=== PATIENT | female | born 1955 | race Caucasian/White ===

== ENCOUNTER 2018-07-10 18:39 | Emergency (ER) | payer MEDICARE, OTHER ==
[~2018-07-10] VITALS: Ht 167.6 cm; Wt 64.4 kg
[~2018-07-10 18:39] MED LIST: ACET500; ALBIPROI INH; ALBU.083IS IH; ALBU3IS INH; ALBU90I INH; ALBU90OI INH; ALBU90OI6 INH; ALEN70 PO; ALINIA; AMIT10 PO; ASPI325 PO; ASPI325EC PO; AZIT250 PO; BENZ100A PO; CALCA500CH PO; CALCIUM PO; CELE200; CELE200 PO; CEPH500 PO; CHLCLI; CHLCLI PO; CHOL10002 PO; CIPR500 PO; CODGUAEL PO; CONEST1.25; CONEST1.25 PO; CYCL10 PO; Cleocin HCl150 MG PO; DICY20 PO; DIPATR; DIPATR PO; DOC250 PO; DOCU100 PO; Duoneb 2.5-0.5 M3 ML INH; ESTR2; FLUC150A PO; FLUSAL2505; FLUSAL2505 IH; FLUSAL2505 INH; FLUT.05NI; FLUT44OIA IH; GABA100 PO; GABA300 PO; HORMONE; HYCOSAMINE; HYDACE5; HYDACE5 PO; HYDACE5325; HYDACE7.5; HYDHOMSY PO; HYOMAX-SL SL; HYOS.125; HYOS.125 PO; HYOS.125 SL; HYOS.375ER; HYOS0.375T; HYOS0.375T PO; IBUP800 PO; LEVFLO500 PO; LEVO750 PO; LOPE2C PO; LORA.5 PO; LORA1 PO; MECL12.5 PO; MECL25 PO; MELO7.5 PO; MESA250ER; METPRE4DP PO; METR250; METR500 PO; MONT10T; MONT10T PO; MULVITMINE PO; Mucinex600 MG PO; NAPR375 PO; NYST100SU MT; OMEP20ER PO; ONDA4 PO; ONDA4ODT MM; OXYACE5T PO; OXYC5 PO; PHENA100 PO; PHENA200 PO; PRAM.5 PO; PRED10 PO; PRED20 PO; PRED5; PROACE100 PO; PROC10; PROC10 PO; PROCODE120 PO; PROM25; PROM25 PO; PROM25S PR; Percocet 5-3251 EACH PO; Prednisone20 MG PO; Prednisone50 MG PO; QVAR7.3 G1 IH; RANI150 PO; RXCODGUASY PO; RXHYDACE PO; RXLORA1 PO; RXPHEN200 PO; SIME80CH PO; SINGULAIR; SOLI5; SOLI5 PO; TIOT18 INH; TRAM50; TRAM50 PO; VICODIN; Ventolin Soln3 ML INH; Ventolin5 MG/1 ML IH; Zithromax250 MG PO; Zofran Odt4 MG PO; Zofran Odt4 MG SL
[2018-07-10 19:16] LABS: BASOPHILS ABSOLUTE AUTO 0.08 K/mm3 (0.00-0.23); BASOPHILS PERCENT AUTO 1 % (0-2); EOSINOPHILS ABSOLUTE AUTO 0.61 K/mm3 (0.00-0.68); EOSINOPHILS PERCENT AUTO 6 % (0-6); Hematocrit 44.7 % (33.0-51.0); Hemoglobin 14.6 g/dL (11.5-16.0); IMMATURE GRAN ABSOLUTE AUTO 0.02 K/mm3 (0.00-0.10); IMMATURE GRAN PERCENT AUTO 0 % (0-1); LYMPHOCYTES ABSOLUTE AUTO 3.66 K/mm3 (0.84-5.20); LYMPHOCYTES PERCENT AUTO 34 % (21-46); MONOCYTES ABSOLUTE AUTO 0.97 K/mm3 (0.16-1.47); MONOCYTES PERCENT AUTO 9 % (4-13); Mean Corpuscular HGB 29.1 pg (26.0-34.0); Mean Corpuscular HGB Conc 32.7 g/dL (31.5-36.5); Mean Corpuscular Volume 89 fL (80-100); Mean Platelet Volume 10.7 fL (9.1-12.4); NEUTROPHILS ABSOLUTE AUTO 5.42 K/mm3 (1.96-9.15); NEUTROPHILS PERCENT AUTO 50 % (41-73); Platelet Count 369 K/mm3 (150-400); RDW Coefficient Variation 13.7 % (11.7-14.2); RDW Standard Deviation 44.8 fL (35.1-46.3); Red Blood Cell Count 5.01 M/mm3 (3.80-5.20); White Blood Cell Count 10.76 K/mm3 (4.00-11.30)
[2018-07-10 19:39] LABS: Troponin I <0.015 ng/mL (0.000-0.040)
[2018-07-10 19:41] LABS: Alanine Aminotransfer (ALT/SGP 18 U/L (12-78); Albumin, Blood 3.9 g/dL (3.4-5.0); Albumin/Globulin Ratio 1.1 (0.8-1.8); Alk Phos 99 U/L (50-136); Anion Gap 6 mmol/L (6-16); Aspartate Aminotrans (AST/SGOT 7 U/L (12-37); Bilirubin, Total 0.5 mg/dL (0.1-1.0); Blood Urea Nitrogen 12 mg/dL (8-24); Bun/Creatinine Ratio 12.6 (12.0-20.0); CO2, Blood 28 mmol/L (21-32); Calcium, Blood 9.3 mg/dL (8.5-10.1); Chloride, Blood 101 mmol/L (98-108); Creatinine, Blood 0.95 mg/dL (0.40-1.00); Globulin, Blood 3.5 g/dL (2.2-4.0); Glomerular Filtration Rate >60 (60-); Glucose, Blood 93 mg/dL (70-99); Potassium, Blood 3.8 mmol/L (3.5-5.5); Sodium, Blood 135 mmol/L (136-145); Total Protein, Blood 7.4 g/dL (6.4-8.2)
[2018-07-10] MEDS ORDERED: Zithromax250 MG PO (23:45)
[2018-07-10] MEDS ORDERED: Prednisone20 MG PO (23:45)
[2018-07-11] MEDS ORDERED: BENZ100A PO (00:06)
== END 2018-07-11 00:09 | disposition home or self-care (01) ==
LOC: ER 18:39
PROVIDERS: Emergency Medicine
DX: J44.1 Chronic obstructive pulmonary disease with (acute) exacerbation (principal); F31.9 Bipolar disorder, unspecified; Z88.8 Allergy status to other drugs, medicaments and biological substances; Z88.5 Allergy status to narcotic agent; Z88.0 Allergy status to penicillin; Z79.899 Other long term (current) drug therapy; Z79.82 Long term (current) use of aspirin; Z79.51 Long term (current) use of inhaled steroids; Z87.891 Personal history of nicotine dependence
CPT/HCPCS: 36415; 71046; 80053; 84484; 85025; 94640; 96374; 99284-25; J2930

== ENCOUNTER 2018-07-12 14:02 | Emergency (ER) | payer MEDICARE, OTHER ==
[~2018-07-12] VITALS: Ht 167.6 cm; Wt 66.0 kg
[2018-07-12 16:10] LABS: BASOPHILS ABSOLUTE AUTO 0.02 K/mm3 (0.00-0.23); BASOPHILS PERCENT AUTO 0 % (0-2); EOSINOPHILS PERCENT AUTO 0 % (0-6); Hematocrit 43.9 % (33.0-51.0); Hemoglobin 14.1 g/dL (11.5-16.0); IMMATURE GRAN ABSOLUTE AUTO 0.07 K/mm3 (0.00-0.10); IMMATURE GRAN PERCENT AUTO 1 % (0-1); LYMPHOCYTES ABSOLUTE AUTO 1.13 K/mm3 (0.84-5.20); LYMPHOCYTES PERCENT AUTO 8 % (21-46); MONOCYTES ABSOLUTE AUTO 0.53 K/mm3 (0.16-1.47); MONOCYTES PERCENT AUTO 4 % (4-13); Mean Corpuscular HGB 29.4 pg (26.0-34.0); Mean Corpuscular HGB Conc 32.1 g/dL (31.5-36.5); Mean Platelet Volume 11.3 fL (9.1-12.4); NEUTROPHILS ABSOLUTE AUTO 12.69 K/mm3 (1.96-9.15); NEUTROPHILS PERCENT AUTO 88 % (41-73); Platelet Count 370 K/mm3 (150-400); RDW Coefficient Variation 13.9 % (11.7-14.2); White Blood Cell Count 14.44 K/mm3 (4.00-11.30)
[2018-07-12 16:11] LABS: Mean Corpuscular Volume 92 fL (80-100)
[2018-07-12 16:23] LABS: Alanine Aminotransfer (ALT/SGP 15 U/L (12-78); Albumin, Blood 3.9 g/dL (3.4-5.0); Albumin/Globulin Ratio 1.2 (0.8-1.8); Alk Phos 93 U/L (50-136); Anion Gap 6 mmol/L (6-16); Aspartate Aminotrans (AST/SGOT 10 U/L (12-37); Bilirubin, Total 0.2 mg/dL (0.1-1.0); Blood Urea Nitrogen 20 mg/dL (8-24); Bun/Creatinine Ratio 23.4 (12.0-20.0); CO2, Blood 28 mmol/L (21-32); Calcium, Blood 9.1 mg/dL (8.5-10.1); Chloride, Blood 107 mmol/L (98-108); Creatinine, Blood 0.85 mg/dL (0.40-1.00); Globulin, Blood 3.3 g/dL (2.2-4.0); Glomerular Filtration Rate >60 (60-); Glucose, Blood 120 mg/dL (70-99); Potassium, Blood 4.3 mmol/L (3.5-5.5); Sodium, Blood 141 mmol/L (136-145); Total Protein, Blood 7.2 g/dL (6.4-8.2)
[2018-07-12 16:25] LABS: Troponin I <0.015 ng/mL (0.000-0.040)
== END 2018-07-12 20:05 | disposition home or self-care (01) ==
LOC: ER 14:02
PROVIDERS: Physician Assistant
DX: J44.1 Chronic obstructive pulmonary disease with (acute) exacerbation (principal); J45.909 Unspecified asthma, uncomplicated; F32.9 Major depressive disorder, single episode, unspecified; Z87.891 Personal history of nicotine dependence
CPT/HCPCS: 36415; 71046; 80053; 84484; 85025; 93005; 93010; 94640; 94644; 96361; 96374; 96375; 99284-25; J2930; J7030

== ENCOUNTER 2019-12-05 10:40 | Inpatient (IN) | payer MEDICARE, OTHER ==
[~2019-12-05] VITALS: Ht 167.6 cm; Wt 65.6 kg
[~2019-12-05 10:40] MED LIST changes: +ACET325 PO; +AZIT500 PO; +Acidophilus La100 GM PO; +CODEINE PO; +COMBIVENT RESPIM4 GM INH; +LIDO700A20 TOP; +METOPROLOL; +PRAM.125 PO; +PRED10; +Prednisone10 MG PO; +TROSPIUM CHLORI20 MG PO
[2019-12-05 13:39] LABS: BASOPHILS ABSOLUTE AUTO 0.03 K/mm3 (0.00-0.23); BASOPHILS PERCENT AUTO 0 % (0-2); EOSINOPHILS ABSOLUTE AUTO 0.27 K/mm3 (0.00-0.68); EOSINOPHILS PERCENT AUTO 3 % (0-6); Hematocrit 42.9 % (33.0-51.0); Hemoglobin 13.9 g/dL (11.5-16.0); IMMATURE GRAN ABSOLUTE AUTO 0.02 K/mm3 (0.00-0.10); IMMATURE GRAN PERCENT AUTO 0 % (0-1); LYMPHOCYTES ABSOLUTE AUTO 2.53 K/mm3 (0.84-5.20); LYMPHOCYTES PERCENT AUTO 31 % (21-46); MONOCYTES ABSOLUTE AUTO 0.71 K/mm3 (0.16-1.47); MONOCYTES PERCENT AUTO 9 % (4-13); Mean Corpuscular HGB Conc 32.4 g/dL (31.5-36.5); Mean Corpuscular Volume 89 fL (80-100); Mean Platelet Volume 10.2 fL (9.1-12.4); NEUTROPHILS ABSOLUTE AUTO 4.52 K/mm3 (1.96-9.15); NEUTROPHILS PERCENT AUTO 56 % (41-73); Platelet Count 306 K/mm3 (150-400); RDW Coefficient Variation 14.6 % (11.7-14.2); RDW Standard Deviation 48.4 fL (35.1-46.3); White Blood Cell Count 8.08 K/mm3 (4.00-11.30)
[2019-12-05 14:00] LABS: Alanine Aminotransfer (ALT/SGP 17 U/L (12-78); Albumin, Blood 3.6 g/dL (3.4-5.0); Alk Phos 105 U/L (50-136); Anion Gap 6 mmol/L (6-16); Aspartate Aminotrans (AST/SGOT 15 U/L (12-37); Bilirubin, Total 0.3 mg/dL (0.1-1.0); Blood Urea Nitrogen 12 mg/dL (8-24); Bun/Creatinine Ratio 13.8 (12.0-20.0); CO2, Blood 29 mmol/L (21-32); Chloride, Blood 104 mmol/L (98-108); Creatinine, Blood 0.87 mg/dL (0.40-1.00); Globulin, Blood 3.5 g/dL (2.2-4.0); Glomerular Filtration Rate >60 (60-); Glucose, Blood 81 mg/dL (70-99); Potassium, Blood 4.1 mmol/L (3.5-5.5); Sodium, Blood 139 mmol/L (136-145); Total Protein, Blood 7.1 g/dL (6.4-8.2); Troponin I <0.015 ng/mL (0.000-0.040)
[2019-12-05 14:09] LABS: Influenza A Negative (NEGATIVE); Influenza B Negative (NEGATIVE)
[2019-12-05] MEDS ORDERED: METO25ER PO (15:28)
[2019-12-05] MEDS ORDERED: PRED5 PO (15:29)
[2019-12-05] MEDS ORDERED: GABA300 PO (15:30)
[2019-12-05] MEDS ORDERED: PRAM.5 PO (15:31)
[2019-12-05] MEDS ORDERED: TROSPIUM CHLORI20 MG PO (15:31)
[2019-12-05] MEDS ORDERED: ALBU90OI INH (15:32)
[2019-12-05] MEDS ORDERED: AMIT50 PO (15:32)
[2019-12-05] MEDS ORDERED: TIOT18 INH (15:34)
[2019-12-05] MEDS ORDERED: FLUT1DIS5 INH (15:34)
[2019-12-05] MEDS ORDERED: Flonase 0.05% N16 GM (15:35)
[2019-12-06 05:40] LABS: Base Excess Venous 0.9 mmol/L; Bicarbonate Venous 25.5 mmol/L (24.0-30.0); PCO2 Venous 35.5 mmHg (38-42); PO2 Venous 151 mmHg (38-42); pH Blood Venous 7.45 (7.34-7.37)
[2019-12-06 05:48] LABS: Hematocrit 38.3 % (33.0-51.0); Hemoglobin 12.3 g/dL (11.5-16.0); Mean Corpuscular HGB 28.5 pg (26.0-34.0); Mean Corpuscular HGB Conc 32.1 g/dL (31.5-36.5); Mean Corpuscular Volume 89 fL (80-100); Mean Platelet Volume 10.6 fL (9.1-12.4); Platelet Count 283 K/mm3 (150-400); RDW Coefficient Variation 14.4 % (11.7-14.2); RDW Standard Deviation 46.9 fL (35.1-46.3); Red Blood Cell Count 4.31 M/mm3 (3.80-5.20); White Blood Cell Count 5.97 K/mm3 (4.00-11.30)
[2019-12-06 06:08] LABS: Alanine Aminotransfer (ALT/SGP 16 U/L (12-78); Albumin, Blood 3.1 g/dL (3.4-5.0); Alk Phos 100 U/L (50-136); Anion Gap 7 mmol/L (6-16); Aspartate Aminotrans (AST/SGOT 11 U/L (12-37); Bilirubin, Total 0.3 mg/dL (0.1-1.0); Blood Urea Nitrogen 19 mg/dL (8-24); Bun/Creatinine Ratio 26.3 (12.0-20.0); CO2, Blood 25 mmol/L (21-32); Calcium, Blood 8.6 mg/dL (8.5-10.1); Chloride, Blood 108 mmol/L (98-108); Creatinine, Blood 0.72 mg/dL (0.40-1.00); Globulin, Blood 3.2 g/dL (2.2-4.0); Glomerular Filtration Rate >60 (60-); Glucose, Blood 192 mg/dL (70-99); Sodium, Blood 140 mmol/L (136-145); Total Protein, Blood 6.3 g/dL (6.4-8.2)
[2019-12-06 06:20] LABS: BAND PERCENT MAN 9 % (0-8); BASOPHILS PERCENT MAN 0 % (0-2); EOSINOPHILS PERCENT MAN 0 % (0-6); LYMPHOCYTES ABSOLUTE MAN 1.07 K/mm3 (0.84-5.20); LYMPHOCYTES PERCENT MAN 18 % (21-46); MONOCYTES ABSOLUTE MAN 0.05 K/mm3 (0.16-1.47); MONOCYTES PERCENT MAN 1 % (4-13); NEUTROPHILS ABSOLUTE MAN 4.83 K/mm3 (1.96-9.15); SEG NEUTROPHILS PERCENT MAN 72 % (41-73); TOTAL CELLS COUNTED 100
--- NOTE | 2019-12-06 06:33 | NUR ---
SHIFT SUMMARY PATIENT ALERT AND ORIENTED X 4. ABLE TO AMBULATE TO THE BATHROOM INDEPENDENTLY. PATIENT HAS BEEN HAVING SHORTNESS OF BREATH AND COUGHING SPELLS. BREATHING TREATMENTS PROVIDED BY RT AND PATIENT MEDICATED PER EMAR FOR COUGH. PATIENT CURRENTLY ON 2 LITERS O2 VIA NASAL CANULA. IV PATENT AND CURRENTLY INFUSING WITH LACTATED RINGERS AT 50 ML/HR. BED IN LOWEST POSITION WITH WHEELS LOCKED. CALL LIGHT AND BELONGINGS WITHIN REACH. REPORT GIVEN TO ONCOMING RN.
--- NOTE | 2019-12-06 15:30 | NUR ---
Upon receiving an admit referral for spiritual care, I visit patient. Patient's fiance, Luis Manuel, is bedside. They tell me about patient's medical issues, their family history and their mormonism beliefs. I listen empathically and provide prayer. Patient responds well and shows signs of an elevated mood. I will continue to remain available to patient and family.
--- NOTE | 2019-12-06 18:14 | NUR ---
SHIFT SUMMARY PT SATING WELL ON 2L O2 WHICH IS BASELINE. OCCATIONAL COUGHING SPELLS, TREATED PER EMAR. CLEAR YELLOW SPUTUM PRODUCED. NO OTHER CHANGES IN ASSESSMENT THIS TIME. VSS. PT IND IN ROOM. PLEASANT T/O SHIFT. WILL CONTINUE TO MONITOR UNTIL TURNOVER IS COMPLETE.
[2019-12-07] MEDS ORDERED: PRED20 PO (11:39)
--- NOTE | 2019-12-07 12:51 | NUR ---
pATIENT DISCHARGED HOME. ALL IV LINES DISCONTINUED. MEDICATIONS FAXED TO [facility].
== END 2019-12-07 11:52 | disposition home or self-care (01) | DRG 189 ==
LOC: ER 10:40 → ERHOLD 15:02 → MEDS 19:50
PROVIDERS: Physician Assistant; ADMIT Internal Medicine
DX: J96.01 Acute respiratory failure with hypoxia (principal); K50.90 Crohn's disease, unspecified, without complications; E44.0 Moderate protein-calorie malnutrition; J44.1 Chronic obstructive pulmonary disease with (acute) exacerbation; F41.9 Anxiety disorder, unspecified; R00.0 Tachycardia, unspecified; F31.9 Bipolar disorder, unspecified; K58.9 Irritable bowel syndrome, unspecified; M19.90 Unspecified osteoarthritis, unspecified site; I10 Essential (primary) hypertension; M81.0 Age-related osteoporosis without current pathological fracture; G62.9 Polyneuropathy, unspecified; G47.30 Sleep apnea, unspecified; Z68.24 Body mass index [BMI] 24.0-24.9, adult; Z99.81 Dependence on supplemental oxygen; Z87.891 Personal history of nicotine dependence; Z88.1 Allergy status to other antibiotic agents; Z88.5 Allergy status to narcotic agent; Z88.0 Allergy status to penicillin
CPT/HCPCS: 36415; 71046; 80053; 82803; 83880; 84145; 84484; 85025; 87804; 93005; 93010; 94640; 94644; 94645; 94660; 94760; 96361; 96374; 96375; 97116; 97161; 97530; 99285-25; A9270; C9113; J1650; J2060; J2930; J7030; J7120; J7512

== ENCOUNTER 2020-07-27 15:59 | Emergency (ER) | payer MEDICARE, OTHER ==
[~2020-07-27] VITALS: Ht 167.6 cm; Wt 64.4 kg
[~2020-07-27 15:59] MED LIST changes: +AMIT50 PO; +FLUT1DIS5 INH; +Flonase 0.05% N16 GM; +METO25ER PO; +PRED5 PO
[2020-07-27 17:01] LABS: BASOPHILS ABSOLUTE AUTO 0.05 K/mm3 (0.00-0.23); BASOPHILS PERCENT AUTO 1 % (0-2); EOSINOPHILS ABSOLUTE AUTO 0.34 K/mm3 (0.00-0.68); EOSINOPHILS PERCENT AUTO 4 % (0-6); Hematocrit 44.4 % (33.0-51.0); Hemoglobin 13.9 g/dL (11.5-16.0); IMMATURE GRAN ABSOLUTE AUTO 0.01 K/mm3 (0.00-0.10); IMMATURE GRAN PERCENT AUTO 0 % (0-1); LYMPHOCYTES ABSOLUTE AUTO 2.34 K/mm3 (0.84-5.20); LYMPHOCYTES PERCENT AUTO 29 % (21-46); MONOCYTES ABSOLUTE AUTO 0.71 K/mm3 (0.16-1.47); MONOCYTES PERCENT AUTO 9 % (4-13); Mean Corpuscular HGB 28.3 pg (26.0-34.0); Mean Corpuscular HGB Conc 31.3 g/dL (31.5-36.5); Mean Corpuscular Volume 90 fL (80-100); Mean Platelet Volume 10.2 fL (9.1-12.4); NEUTROPHILS ABSOLUTE AUTO 4.76 K/mm3 (1.96-9.15); NEUTROPHILS PERCENT AUTO 58 % (41-73); Platelet Count 337 K/mm3 (150-400); RDW Coefficient Variation 14.1 % (11.7-14.2); RDW Standard Deviation 47.4 fL (35.1-46.3); Red Blood Cell Count 4.91 M/mm3 (3.80-5.20); White Blood Cell Count 8.21 K/mm3 (4.00-11.30)
[2020-07-27 17:23] LABS: Alanine Aminotransfer (ALT/SGP 19 U/L (12-78); Albumin, Blood 3.4 g/dL (3.4-5.0); Alk Phos 99 U/L (50-136); Anion Gap 4 mmol/L (6-16); Aspartate Aminotrans (AST/SGOT 12 U/L (12-37); Bilirubin, Total 0.4 mg/dL (0.1-1.0); Blood Urea Nitrogen 11 mg/dL (8-24); CO2, Blood 31 mmol/L (21-32); Calcium, Blood 9.2 mg/dL (8.5-10.1); Chloride, Blood 105 mmol/L (98-108); Creatinine, Blood 0.92 mg/dL (0.40-1.00); Globulin, Blood 3.3 g/dL (2.2-4.0); Glomerular Filtration Rate >60 (60-); Glucose, Blood 99 mg/dL (70-99); Potassium, Blood 4.2 mmol/L (3.5-5.5); Sodium, Blood 140 mmol/L (136-145); Total Protein, Blood 6.7 g/dL (6.4-8.2)
[2020-07-28] MEDS ORDERED: COMPAZINE10 MG PO (11:03)
== END 2020-07-27 20:21 | disposition left against medical advice (07) ==
LOC: ER 15:59
PROVIDERS: Physician Assistant
DX: R10.30 Lower abdominal pain, unspecified (principal); R19.7 Diarrhea, unspecified; Z53.21 Procedure and treatment not carried out due to patient leaving prior to being seen by health care provider; Z79.52 Long term (current) use of systemic steroids; Z79.899 Other long term (current) drug therapy
CPT/HCPCS: 36415; 74177; 80053; 85025; 99284-25; Q9967

== ENCOUNTER 2020-07-28 09:13 | Emergency (ER) | payer MEDICARE, OTHER ==
[~2020-07-28] VITALS: Ht 167.6 cm; Wt 64.4 kg
[2020-07-28 10:03] LABS: BASOPHILS ABSOLUTE AUTO 0.04 K/mm3 (0.00-0.23); BASOPHILS PERCENT AUTO 1 % (0-2); EOSINOPHILS ABSOLUTE AUTO 0.35 K/mm3 (0.00-0.68); EOSINOPHILS PERCENT AUTO 5 % (0-6); Hemoglobin 14.1 g/dL (11.5-16.0); IMMATURE GRAN ABSOLUTE AUTO 0.01 K/mm3 (0.00-0.10); IMMATURE GRAN PERCENT AUTO 0 % (0-1); LYMPHOCYTES ABSOLUTE AUTO 2.17 K/mm3 (0.84-5.20); LYMPHOCYTES PERCENT AUTO 29 % (21-46); MONOCYTES ABSOLUTE AUTO 0.64 K/mm3 (0.16-1.47); MONOCYTES PERCENT AUTO 8 % (4-13); Mean Corpuscular HGB 28.5 pg (26.0-34.0); Mean Corpuscular Volume 89 fL (80-100); Mean Platelet Volume 10.7 fL (9.1-12.4); NEUTROPHILS ABSOLUTE AUTO 4.39 K/mm3 (1.96-9.15); NEUTROPHILS PERCENT AUTO 58 % (41-73); Platelet Count 331 K/mm3 (150-400); RDW Coefficient Variation 13.9 % (11.7-14.2); RDW Standard Deviation 45.2 fL (35.1-46.3); Red Blood Cell Count 4.94 M/mm3 (3.80-5.20)
[2020-07-28 10:24] LABS: Alanine Aminotransfer (ALT/SGP 18 U/L (12-78); Albumin, Blood 3.5 g/dL (3.4-5.0); Albumin/Globulin Ratio 1.1 (0.8-1.8); Alk Phos 101 U/L (50-136); Anion Gap 4 mmol/L (6-16); Aspartate Aminotrans (AST/SGOT 12 U/L (12-37); Bilirubin, Total 0.5 mg/dL (0.1-1.0); Blood Urea Nitrogen 10 mg/dL (8-24); Bun/Creatinine Ratio 11.2 (12.0-20.0); CO2, Blood 32 mmol/L (21-32); Chloride, Blood 101 mmol/L (98-108); Globulin, Blood 3.3 g/dL (2.2-4.0); Glomerular Filtration Rate >60 (60-); Glucose, Blood 98 mg/dL (70-99); Potassium, Blood 4.4 mmol/L (3.5-5.5); Sodium, Blood 137 mmol/L (136-145); Total Protein, Blood 6.8 g/dL (6.4-8.2)
[2020-07-28] MEDS ORDERED: COMPAZINE10 MG PO (11:03)
== END 2020-07-28 11:09 | disposition home or self-care (01) ==
LOC: ER 09:13
PROVIDERS: Physician Assistant
DX: R11.2 Nausea with vomiting, unspecified (principal); R19.7 Diarrhea, unspecified; J44.9 Chronic obstructive pulmonary disease, unspecified; F31.9 Bipolar disorder, unspecified; F17.200 Nicotine dependence, unspecified, uncomplicated; Z79.899 Other long term (current) drug therapy; Z79.52 Long term (current) use of systemic steroids
CPT/HCPCS: 36415; 74176; 80053; 85025; 96374; 99283-25; J2405

== ENCOUNTER 2020-11-22 19:18 | Inpatient (IN) | payer MEDICARE, OTHER ==
[~2020-11-22] VITALS: Ht 162.6 cm; Wt 65.8 kg
[~2020-11-22 19:18] MED LIST changes: +COMPAZINE10 MG PO
[2020-11-22 19:41] LABS: BASOPHILS ABSOLUTE AUTO 0.08 K/mm3 (0.00-0.23); BASOPHILS PERCENT AUTO 1 % (0-2); EOSINOPHILS ABSOLUTE AUTO 0.74 K/mm3 (0.00-0.68); EOSINOPHILS PERCENT AUTO 5 % (0-6); Hematocrit 47.3 % (33.0-51.0); Hemoglobin 14.8 g/dL (11.5-16.0); IMMATURE GRAN ABSOLUTE AUTO 0.09 K/mm3 (0.00-0.10); IMMATURE GRAN PERCENT AUTO 1 % (0-1); LYMPHOCYTES ABSOLUTE AUTO 3.45 K/mm3 (0.84-5.20); LYMPHOCYTES PERCENT AUTO 24 % (21-46); MONOCYTES ABSOLUTE AUTO 0.99 K/mm3 (0.16-1.47); MONOCYTES PERCENT AUTO 7 % (4-13); Mean Corpuscular HGB Conc 31.3 g/dL (31.5-36.5); Mean Corpuscular Volume 93 fL (80-100); Mean Platelet Volume 10.3 fL (9.1-12.4); NEUTROPHILS ABSOLUTE AUTO 9.16 K/mm3 (1.96-9.15); NEUTROPHILS PERCENT AUTO 63 % (41-73); Platelet Count 300 K/mm3 (150-400); RDW Coefficient Variation 14.6 % (11.7-14.2); RDW Standard Deviation 50.2 fL (35.1-46.3); White Blood Cell Count 14.51 K/mm3 (4.00-11.30)
[2020-11-22 19:42] LABS: PCO2 Arterial 59.4 mmHg (35-45); PO2 Arterial 165 mmHg (80-100); pH Blood Arterial 7.32 (7.35-7.45)
[2020-11-22 20:01] LABS: Albumin, Blood 3.9 g/dL (3.4-5.0); Albumin/Globulin Ratio 1.2 (0.8-1.8); Bilirubin, Total 0.5 mg/dL (0.1-1.0); Bun/Creatinine Ratio 10.6 (12.0-20.0); Calcium, Blood 8.5 mg/dL (8.5-10.1); Creatinine, Blood 1.04 mg/dL (0.40-1.00); Globulin, Blood 3.3 g/dL (2.2-4.0); Potassium, Blood 4.5 mmol/L (3.5-5.5); Total Protein, Blood 7.2 g/dL (6.4-8.2); Troponin I 0.084 ng/mL (0.000-0.040)
--- NOTE | 2020-11-22 21:56 | NUR ---
ADMIT NOTE AT APPROX 2130, PCU WAS BROUGHT TO PCU FROM ED VIA ED STRETCHER. PT WAS SLID FROM ED STRETCHER TO PCU BED BY 4 STAFF. PT A&OX4. SP02>90% ON 4L NC. PT IS SOB, SITTING UP IN BED AT 90 DEGREES. LUNGS HAVE EXP WHEEZE T/O. PRODUCTIVE COUGH W/ WHITE THICK SPUTUM. PT C/O OF NAUSEA. PT ALSO STATES 5/10 "SORENESS" IN HER CHEST FROM COUGHING. PT STATES SHE HAS BEEN USING BRIEFS FOR RESTROOM THE PAST WEEK. C/D BRIEFS IN TACT. ORIENTED TO ROOM AND CALL LIGHT. CALL LIGHT IN REACH. PT RESTING IN ROOM WITH TV ON.
--- NOTE | 2020-11-23 00:47 | NUR ---
PT UPDATE PT USED CALL LIGHT TO ASK FOR COOL RAG. UPON ENTERING ROOM, PT HAD GOWN OFF, SPLASHING WATER ON HERSELF, NC ON BED, STATING "COOL ME DOWN! IM HOT! i CANT BREATHE!" SP02 MONITOR SHOWED 85%. NC IMMEDIATELY PLACED IN NOSE. PT GRABBED THIS RN'S ARMS AND STATED "DONT LEAVE ME!". ENCOURAGED PT TO TAKE DEEP BREATHES THROUGH HER NOSE WHILE PLACING COOL RAG ON FORHEAD. FAN PROVIDED WELL. PT STATED "THIS HAPPENS AT HOME TOO WHEN I TAKE STERIODS." PT STAT'S INCREASED TO 94%. PT CALMED DOWN AND IS NOW RESTING IN ROOM W/ TV ON. CALL LIGHT IN REACH.
[2020-11-23 04:15] LABS: BASOPHILS ABSOLUTE AUTO 0.01 K/mm3 (0.00-0.23); BASOPHILS PERCENT AUTO 0 % (0-2); EOSINOPHILS PERCENT AUTO 0 % (0-6); Hematocrit 43.9 % (33.0-51.0); Hemoglobin 13.8 g/dL (11.5-16.0); IMMATURE GRAN ABSOLUTE AUTO 0.04 K/mm3 (0.00-0.10); IMMATURE GRAN PERCENT AUTO 0 % (0-1); LYMPHOCYTES ABSOLUTE AUTO 0.44 K/mm3 (0.84-5.20); LYMPHOCYTES PERCENT AUTO 5 % (21-46); MONOCYTES ABSOLUTE AUTO 0.05 K/mm3 (0.16-1.47); MONOCYTES PERCENT AUTO 1 % (4-13); Mean Corpuscular HGB 28.7 pg (26.0-34.0); Mean Corpuscular HGB Conc 31.4 g/dL (31.5-36.5); Mean Corpuscular Volume 91 fL (80-100); Mean Platelet Volume 10.5 fL (9.1-12.4); NEUTROPHILS PERCENT AUTO 94 % (41-73); Platelet Count 289 K/mm3 (150-400); RDW Coefficient Variation 14.6 % (11.7-14.2); RDW Standard Deviation 48.8 fL (35.1-46.3); Red Blood Cell Count 4.81 M/mm3 (3.80-5.20); White Blood Cell Count 9.14 K/mm3 (4.00-11.30)
[2020-11-23 04:49] LABS: Alanine Aminotransfer (ALT/SGP 60 U/L (12-78); Albumin, Blood 3.4 g/dL (3.4-5.0); Alk Phos 107 U/L (50-136); Anion Gap 3 mmol/L (6-16); Aspartate Aminotrans (AST/SGOT 41 U/L (12-37); Bilirubin, Total 0.6 mg/dL (0.1-1.0); Blood Urea Nitrogen 12 mg/dL (8-24); Bun/Creatinine Ratio 13.9 (12.0-20.0); CO2, Blood 32 mmol/L (21-32); CPK Creatine Kinase 107 U/L (26-193); Calcium, Blood 8.9 mg/dL (8.5-10.1); Chloride, Blood 105 mmol/L (98-108); Creatinine, Blood 0.87 mg/dL (0.40-1.00); Globulin, Blood 3.3 g/dL (2.2-4.0); Glomerular Filtration Rate >60 (60-); Glucose, Blood 148 mg/dL (70-99); Potassium, Blood 4.7 mmol/L (3.5-5.5); Sodium, Blood 140 mmol/L (136-145); Total Protein, Blood 6.7 g/dL (6.4-8.2)
[2020-11-23 05:01] LABS: Troponin I 0.507 ng/mL (0.000-0.040)
--- NOTE | 2020-11-23 05:32 | NUR ---
SHIFT SUMMARY PT A&OX4. PT HAD MULTIPLE EPISODES THAT APPEARED "PANIC ATTACKS". SEE PREVIOUS NOTE. SP02>90% ON 4L NC. PT HAS PRODUCTIVE COUGH W/ WHITE THICK SPUTUM. MEDICATED W/ COUGH SYRUP PER EMAR X1. PT C/O OF NAUSEA. MEDICATED PER EMAR X1 THIS SHIFT. PT ALSO STATES 5/10 "SORENESS" IN HER CHEST FROM COUGHING. PT HAD ONE INCONTINENT VOID THIS SHIFT WELL UP TO [facility] W/ ASSISTANCE X2. C/D ATTENDS IN PLACE. CALL LIGHT IN REACH. WILL GIVE REPORT TO ONCOMING NURSE.
--- NOTE | 2020-11-23 09:37 | NUR ---
Echocardiogram completed.
--- NOTE | 2020-11-23 10:02 | NUR ---
ASSUMED CARE FROM [facility] RN PT WAS ADMITTED DURING [facility] SHIFT FOR COPD EXACERBATION. PT WAS AWAKE AND PARTICIPATED IN MORNING REPORT. PT HAD SOME ANXIETY THROUGHOUT THE NIGHT BUT IT SEEMS TO RESOLVED WITH OPEN COMMUNICATION AND REASSURANCE BY THE RN ACCORDING TO REPORT. PT HAS NOT HAD ANXIETY THIS MORNING, VS STABLE, PT ON 2L O2 VIA NC WHICH IS HER BASELINE. PT HAS RECEIVED SOME MEDICATION ALONG WITH MORNING MEDS TO TREAT HER COUGH WHICH PT REPORTS THE TESSALAN PEARLS BEING HELPFUL. PT HAD AN INCONTINENCE EPISODE THIS MORNING, LINENS WERE CHANGED, PT WAS ABLE TO URINATE IN THE BSC WELL WITH ASSISTANCE FROM THE CONVEYOR LINE BATTERY CHARGER. PT IS IN BED RESTING AT THIS TIME.
--- NOTE | 2020-11-23 11:07 | NUR ---
CARDIOLOGY CONSULT DR. LAO WAS CONSULTED AND SPENT TIME WITH THE PT EXPLAINING HIS RECOMMENDATION OF ANGIO. CHRIS HONG WAS PRESENT WELL DURING THE CONSULT AND ENSURED THE PT'S UNDERSTANDING OF THE PROCEDURE AND THE OUTCOME AND THE REASONING BEHIND THE RECOMMENDATION. PT STATED SHE WANTED TO SPEAK WITH HER FAMILY BEFORE MAKING A DECISION. PT ALSO STATED "MY LUNG DOCTOR HAS MENTIONED THAT I MAY NEED TO DO THIS AT SOME POINT BUT I'D LIKE TO WAIT AND SEE HIM FIRST AND GO THROUGH HIM TO CONNECT WITH CARDIOLOGY." CHRIS HONG EXPLAINED AGAIN THAT THE ANGIO WAS RECOMMENDED; AND EXPLAINED THAT BY DENYING THE ANGIO TODAY IT WOULD TAKE LONGER TO GET TREATMENT OUTPATIENT AND THERE IS A POSSIBILITY THAT SOME CARDIAC EVENT COULD OCCUR DUE TO THE STRESS ON THE HEART FROM POOR RESPIRATORY STATUS OR THE UNKNOWN POSSIBLITY OF BLOCKAGE CAUSING ISCHEMIA. IT WAS EXPLAINED THAT IT MAY NOT HAPPEN BUT IT IS A POSSIBILITY BY NOT GOING FOR ANGIO TODAY, PT GAVE VERBAL UNDERSTANDING MULTIPLE TIMES REGARDING HER DECISION. DR. VARGAS AND DR. LAO WERE NOTIFIED OF THE PT'S DECISION.
[2020-11-23 12:09] LABS: Troponin I 0.36 ng/mL (0.000-0.040)
--- NOTE | 2020-11-23 15:37 | NUR ---
TRANSFER OF CARE PT TRANSFERRED TO MEDICAL FLOOR AT APPROXIMATELY 1405. PT COMPLETED DIALYSIS TODAY AND HAD APPROXIMATELY 3400 ML PULLED OFF. PT LEFT WITH 1L O2 VIA NC IN PLACE, VS STABLE, PT ABLE TO SBA TO THE WHEELCHAIR FOR TRANSFER. REPORT WAS GIVEN TO MEDICAL FLOOR RN VIA PHONE. PT ACCOMPANIED BY , CHRIS OROZCO AND SITE PLANNER. PT WAS SENT WITH ALL PERSONAL BELONGINGS, NEXT DOSE OF VANCO AND BOTH LONG ACTING AND SHORT ACTING INSULIN PENS.
--- NOTE | 2020-11-23 19:14 | NUR ---
SHIFT SUMMARY PT WAS CONSULTED BY CARDIOLOGY TODAY AND AN ANGIO WAS RECOMMENDED BUT THE PT DECLINED AT THIS TIME. PT HAS BEEN COUGHING ON AND OFF THROUGHOUT THE DAY, THE TESSALON PEARLS SEEMED TO GIVE HER RELIEF. PT HAS HAD SEVERAL INCONTINENCE EPISODES THROUGOUT THE DAY DUE TO THE COUGHING. VS STABLE, PT ON 2L O2 VIA NC AND ABLE TO USE THE BSC FOR RELIEF. PT IN HER BED RESTING AT THIS TIME
[2020-11-24 05:29] LABS: Hematocrit 44.1 % (33.0-51.0); Hemoglobin 13.9 g/dL (11.5-16.0); Mean Corpuscular HGB 28.6 pg (26.0-34.0); Mean Corpuscular HGB Conc 31.5 g/dL (31.5-36.5); Mean Corpuscular Volume 91 fL (80-100); Mean Platelet Volume 10.7 fL (9.1-12.4); Platelet Count 317 K/mm3 (150-400); RDW Coefficient Variation 14.6 % (11.7-14.2); RDW Standard Deviation 48.2 fL (35.1-46.3); Red Blood Cell Count 4.86 M/mm3 (3.80-5.20); White Blood Cell Count 14.77 K/mm3 (4.00-11.30)
[2020-11-24 05:55] LABS: Alanine Aminotransfer (ALT/SGP 54 U/L (12-78); Albumin, Blood 3.3 g/dL (3.4-5.0); Alk Phos 94 U/L (50-136); Anion Gap 4 mmol/L (6-16); Aspartate Aminotrans (AST/SGOT 29 U/L (12-37); Bilirubin, Total 0.4 mg/dL (0.1-1.0); Blood Urea Nitrogen 17 mg/dL (8-24); Bun/Creatinine Ratio 22.5 (12.0-20.0); CO2, Blood 34 mmol/L (21-32); Calcium, Blood 9.1 mg/dL (8.5-10.1); Chloride, Blood 103 mmol/L (98-108); Creatinine, Blood 0.76 mg/dL (0.40-1.00); Globulin, Blood 3.2 g/dL (2.2-4.0); Glomerular Filtration Rate >60 (60-); Glucose, Blood 127 mg/dL (70-99); Potassium, Blood 4.2 mmol/L (3.5-5.5); Sodium, Blood 141 mmol/L (136-145); Total Protein, Blood 6.5 g/dL (6.4-8.2)
--- NOTE | 2020-11-24 06:23 | NUR ---
shift summary pt rested through most of night - able to make needs known. very anxious. sats dropped through night - increased o2 to 5lnc. tele nsr. no c/o chest pain. nauseated through night - see emar. cough meds as needed - see emar. attends changed as needed - no bm. no signs of c.diff. no c/o pain. call light within reach, bed in lowest position. will continue to monitor.
[2020-11-24] MEDS ORDERED: BENZ100A PO (12:55)
[2020-11-24] MEDS ORDERED: CEFD300 PO (12:58)
--- NOTE | 2020-11-24 19:44 | NUR ---
DISCHARGE SUMMARY PT A&Ox3; ANXIOUS BUT COOPERATIVE WITH CARE. PT RESTING IN BED DURING SHIFT. UP TO [facility] SBA. PT ON 4L O2 VIA NC THIS AM; TITRATED TO 2L O2 VIA NC WHICH IS PATIENT BASELINE, SPO2 90-91% ON 2L. PT REPORTS NAUSES THIS AM, MEDICATED PER EMAR. PT DENIES PAIN, CHEST PAIN, AND DIZZINESS. VSS. NO OTHER ACUTE CHAGNES NOTED DURING SHIFT. PT EDUCATED ON DISCHARGE INSTRUCTIONS, FOLLOW UP APPOINTMENTS AND MEDICATIONS. PT LEFT ROOM VIA WHEELCHAIR AT 1406.
== END 2020-11-24 14:06 | disposition home or self-care (01) | DRG 189 ==
LOC: ER 19:18 → PCU 19:19
PROVIDERS: Emergency Medicine; Internal Medicine; ADMIT Internal Medicine
DX: J96.01 Acute respiratory failure with hypoxia (principal); J44.1 Chronic obstructive pulmonary disease with (acute) exacerbation; K50.90 Crohn's disease, unspecified, without complications; I50.22 Chronic systolic (congestive) heart failure; Z66 Do not resuscitate; R79.89 Other specified abnormal findings of blood chemistry; N63.0 Unspecified lump in unspecified breast; F31.9 Bipolar disorder, unspecified; K58.9 Irritable bowel syndrome, unspecified; I34.0 Nonrheumatic mitral (valve) insufficiency; F41.9 Anxiety disorder, unspecified; M19.90 Unspecified osteoarthritis, unspecified site; G47.30 Sleep apnea, unspecified; Z99.81 Dependence on supplemental oxygen; Z87.891 Personal history of nicotine dependence; Z79.51 Long term (current) use of inhaled steroids; Z79.52 Long term (current) use of systemic steroids
CPT/HCPCS: 36415; 36600; 71045; 80053; 82550; 82803; 83605; 83880; 84484; 85025; 85027; 87040; 87070; 87205; 93005; 93010; 93306; 94640; 94644; 94760; 94762; 96372; 96374; 96375; 96376; 99285-25; A9270; G0378; J1650; J2405; J2930

== ENCOUNTER 2021-05-04 13:19 | Emergency (ER) | payer MEDICARE, OTHER ==
[~2021-05-04] VITALS: Ht 167.6 cm; Wt 59.0 kg
[~2021-05-04 13:19] MED LIST changes: +CEFD300 PO
[2021-05-04 14:45] LABS: BASOPHILS ABSOLUTE AUTO 0.04 K/mm3 (0.00-0.23); BASOPHILS PERCENT AUTO 1 % (0-2); EOSINOPHILS ABSOLUTE AUTO 0.26 K/mm3 (0.00-0.68); EOSINOPHILS PERCENT AUTO 4 % (0-6); Hematocrit 45.5 % (33.0-51.0); Hemoglobin 14.6 g/dL (11.5-16.0); IMMATURE GRAN ABSOLUTE AUTO 0.01 K/mm3 (0.00-0.10); IMMATURE GRAN PERCENT AUTO 0 % (0-1); LYMPHOCYTES ABSOLUTE AUTO 2.19 K/mm3 (0.84-5.20); LYMPHOCYTES PERCENT AUTO 32 % (21-46); MONOCYTES ABSOLUTE AUTO 0.58 K/mm3 (0.16-1.47); MONOCYTES PERCENT AUTO 8 % (4-13); Mean Corpuscular HGB 28.6 pg (26.0-34.0); Mean Corpuscular HGB Conc 32.1 g/dL (31.5-36.5); Mean Corpuscular Volume 89 fL (80-100); Mean Platelet Volume 11.4 fL (9.1-12.4); NEUTROPHILS ABSOLUTE AUTO 3.81 K/mm3 (1.96-9.15); NEUTROPHILS PERCENT AUTO 55 % (41-73); Platelet Count 270 K/mm3 (150-400); RDW Coefficient Variation 13.4 % (11.7-14.2); RDW Standard Deviation 43.9 fL (35.1-46.3); White Blood Cell Count 6.89 K/mm3 (4.00-11.30)
[2021-05-04 15:06] LABS: Alanine Aminotransfer (ALT/SGP 24 U/L (12-78); Albumin, Blood 3.8 g/dL (3.4-5.0); Albumin/Globulin Ratio 1.1 (0.8-1.8); Alk Phos 88 U/L (50-136); Anion Gap 3 mmol/L (6-16); Aspartate Aminotrans (AST/SGOT 17 U/L (12-37); Bilirubin, Total 0.5 mg/dL (0.1-1.0); Blood Urea Nitrogen 10 mg/dL (8-24); CO2, Blood 28 mmol/L (21-32); Calcium, Blood 9.5 mg/dL (8.5-10.1); Chloride, Blood 106 mmol/L (98-108); Creatinine, Blood 0.83 mg/dL (0.40-1.00); Globulin, Blood 3.5 g/dL (2.2-4.0); Glomerular Filtration Rate >60 (60-); Glucose, Blood 120 mg/dL (70-99); Potassium, Blood 3.9 mmol/L (3.5-5.5); Sodium, Blood 137 mmol/L (136-145); Total Protein, Blood 7.3 g/dL (6.4-8.2)
[2021-05-04 15:24] LABS: Source, Urine Clean Catch
[2021-05-04 15:30] LABS: Appearance, Urine Clear (Clear); Bilirubin, Urine Neg (Neg); Blood, Urine Neg (Neg); Color, Urine Yellow (P-Yellow); Glucose Qualitative, Urine Neg (Neg); Ketones, Urine Neg (Neg); Leukocyte Esterase, Urine Neg (Neg); Nitrite, Urine Neg (Neg); Protein, Urine Neg (Neg); Specific Gravity, Urine 1.025 (1.003-1.022); Urobilinogen, Urine NORM (Normal)
[2021-05-04] MEDS ORDERED: ONDA4ODT MM (16:39)
== END 2021-05-04 17:26 | disposition home or self-care (01) ==
LOC: ER 13:19
PROVIDERS: Student in an Organized Health Care Education/Training Program
DX: R10.31 Right lower quadrant pain (principal); R11.2 Nausea with vomiting, unspecified; J43.9 Emphysema, unspecified; Z88.5 Allergy status to narcotic agent; Z88.0 Allergy status to penicillin; Z88.8 Allergy status to other drugs, medicaments and biological substances; Z87.891 Personal history of nicotine dependence
CPT/HCPCS: 74177; 80053; 81003; 85025; 96361; 96374-59; 99284-25; J2405; J7120; Q9967

== ENCOUNTER 2021-05-06 11:43 | Emergency (ER) | payer MEDICARE, OTHER ==
[~2021-05-06] VITALS: Ht 167.6 cm; Wt 63.5 kg
[2021-05-06 12:30] LABS: BASOPHILS ABSOLUTE AUTO 0.04 K/mm3 (0.00-0.23); BASOPHILS PERCENT AUTO 1 % (0-2); EOSINOPHILS ABSOLUTE AUTO 0.41 K/mm3 (0.00-0.68); EOSINOPHILS PERCENT AUTO 7 % (0-6); Hematocrit 42.5 % (33.0-51.0); Hemoglobin 13.6 g/dL (11.5-16.0); IMMATURE GRAN ABSOLUTE AUTO 0.01 K/mm3 (0.00-0.10); IMMATURE GRAN PERCENT AUTO 0 % (0-1); LYMPHOCYTES ABSOLUTE AUTO 1.98 K/mm3 (0.84-5.20); LYMPHOCYTES PERCENT AUTO 31 % (21-46); MONOCYTES ABSOLUTE AUTO 0.57 K/mm3 (0.16-1.47); MONOCYTES PERCENT AUTO 9 % (4-13); Mean Corpuscular HGB 29.1 pg (26.0-34.0); Mean Corpuscular Volume 91 fL (80-100); Mean Platelet Volume 11.1 fL (9.1-12.4); NEUTROPHILS ABSOLUTE AUTO 3.33 K/mm3 (1.96-9.15); NEUTROPHILS PERCENT AUTO 53 % (41-73); Platelet Count 245 K/mm3 (150-400); RDW Coefficient Variation 14.1 % (11.7-14.2); RDW Standard Deviation 46.9 fL (35.1-46.3); Red Blood Cell Count 4.68 M/mm3 (3.80-5.20); White Blood Cell Count 6.34 K/mm3 (4.00-11.30)
[2021-05-06 12:36] LABS: Alanine Aminotransfer (ALT/SGP 23 U/L (12-78); Albumin, Blood 3.7 g/dL (3.4-5.0); Albumin/Globulin Ratio 1.2 (0.8-1.8); Alk Phos 82 U/L (50-136); Anion Gap 2 mmol/L (6-16); Aspartate Aminotrans (AST/SGOT 17 U/L (12-37); Bilirubin, Total 0.4 mg/dL (0.1-1.0); Blood Urea Nitrogen 10 mg/dL (8-24); Bun/Creatinine Ratio 11.4 (12.0-20.0); CO2, Blood 29 mmol/L (21-32); Chloride, Blood 109 mmol/L (98-108); Creatinine, Blood 0.88 mg/dL (0.40-1.00); Ethanol (Alcohol), Blood, Med <3 mg/dL; Glomerular Filtration Rate >60 (60-); Glucose, Blood 92 mg/dL (70-99); Potassium, Blood 4.1 mmol/L (3.5-5.5); Sodium, Blood 140 mmol/L (136-145); Total Protein, Blood 6.7 g/dL (6.4-8.2)
[2021-05-06] MEDS ORDERED: PROM25 PO (13:32)
[2021-05-06] MEDS ORDERED: DICY20 PO (13:32)
== END 2021-05-06 14:02 | disposition home or self-care (01) ==
LOC: ER 11:43
PROVIDERS: Emergency Medicine
DX: R10.9 Unspecified abdominal pain (principal); R11.2 Nausea with vomiting, unspecified; R53.1 Weakness; J43.9 Emphysema, unspecified; Z88.8 Allergy status to other drugs, medicaments and biological substances; Z88.0 Allergy status to penicillin; Z79.899 Other long term (current) drug therapy
CPT/HCPCS: 36415; 80053; 83690; 85025; 85027; 85651; 96374; 99284-25; G0480; J2405

== ENCOUNTER 2021-05-22 08:12 | Emergency (ER) | payer MEDICARE, OTHER ==
[~2021-05-22] VITALS: Ht 167.6 cm; Wt 63.5 kg
[2021-05-22 08:54] LABS: BASOPHILS ABSOLUTE AUTO 0.01 K/mm3 (0.00-0.23); BASOPHILS PERCENT AUTO 0 % (0-2); EOSINOPHILS PERCENT AUTO 0 % (0-6); Hematocrit 42.4 % (33.0-51.0); Hemoglobin 13.9 g/dL (11.5-16.0); IMMATURE GRAN PERCENT AUTO 0 % (0-1); LYMPHOCYTES ABSOLUTE AUTO 1.18 K/mm3 (0.84-5.20); LYMPHOCYTES PERCENT AUTO 28 % (21-46); MONOCYTES ABSOLUTE AUTO 0.81 K/mm3 (0.16-1.47); MONOCYTES PERCENT AUTO 20 % (4-13); Mean Corpuscular HGB 28.7 pg (26.0-34.0); Mean Corpuscular HGB Conc 32.8 g/dL (31.5-36.5); Mean Corpuscular Volume 88 fL (80-100); Mean Platelet Volume 11.2 fL (9.1-12.4); NEUTROPHILS ABSOLUTE AUTO 2.15 K/mm3 (1.96-9.15); NEUTROPHILS PERCENT AUTO 52 % (41-73); Platelet Count 197 K/mm3 (150-400); RDW Coefficient Variation 14.1 % (11.7-14.2); RDW Standard Deviation 45.1 fL (35.1-46.3); Red Blood Cell Count 4.84 M/mm3 (3.80-5.20); White Blood Cell Count 4.15 K/mm3 (4.00-11.30)
[2021-05-22 09:17] LABS: Alanine Aminotransfer (ALT/SGP 20 U/L (12-78); Albumin, Blood 3.5 g/dL (3.4-5.0); Albumin/Globulin Ratio 1.1 (0.8-1.8); Alk Phos 77 U/L (50-136); Anion Gap 7 mmol/L (6-16); Aspartate Aminotrans (AST/SGOT 19 U/L (12-37); Bilirubin, Total 0.3 mg/dL (0.1-1.0); Blood Urea Nitrogen 13 mg/dL (8-24); Bun/Creatinine Ratio 13.3 (12.0-20.0); CO2, Blood 27 mmol/L (21-32); Calcium, Blood 8.9 mg/dL (8.5-10.1); Chloride, Blood 102 mmol/L (98-108); Creatinine, Blood 0.98 mg/dL (0.40-1.00); Globulin, Blood 3.2 g/dL (2.2-4.0); Glomerular Filtration Rate 57 (60-); Glucose, Blood 86 mg/dL (70-99); Potassium, Blood 3.7 mmol/L (3.5-5.5); Sodium, Blood 136 mmol/L (136-145); Total Protein, Blood 6.7 g/dL (6.4-8.2); Troponin I <0.015 ng/mL (0.000-0.040)
[2021-05-22] MEDS ORDERED: ACETAMINOPHEN500 MG PO (09:51)
[2021-05-22] MEDS ORDERED: Roxicodone5 MG PO (09:51)
== END 2021-05-22 10:42 | disposition home or self-care (01) ==
LOC: ER 08:12
PROVIDERS: Emergency Medicine
DX: S20.211A Contusion of right front wall of thorax, initial encounter (principal); W19.XXXA Unspecified fall, initial encounter; Y92.009 Unspecified place in unspecified non-institutional (private) residence as the place of occurrence of the external cause; J44.9 Chronic obstructive pulmonary disease, unspecified; Z96.651 Presence of right artificial knee joint
CPT/HCPCS: 36415; 71046; 80053; 84484; 85025; 93005; 93010; 99284-25; A9270

== ENCOUNTER 2021-05-25 00:42 | Emergency (ER) | payer MEDICARE, OTHER ==
[~2021-05-25] VITALS: Ht 167.6 cm; Wt 65.8 kg
[~2021-05-25 00:42] MED LIST changes: +ACETAMINOPHEN500 MG PO; +Roxicodone5 MG PO
[2021-05-25 01:20] LABS: EOSINOPHILS ABSOLUTE AUTO 0.01 K/mm3 (0.00-0.68); EOSINOPHILS PERCENT AUTO 0 % (0-6); RDW Coefficient Variation 13.8 % (11.7-14.2)
[2021-05-25 01:27] LABS: BASOPHILS ABSOLUTE AUTO 0.01 K/mm3 (0.00-0.23); BASOPHILS PERCENT AUTO 0 % (0-2); Hematocrit 40.3 % (33.0-51.0); Hemoglobin 13.6 g/dL (11.5-16.0); IMMATURE GRAN ABSOLUTE AUTO 0.02 K/mm3 (0.00-0.10); IMMATURE GRAN PERCENT AUTO 1 % (0-1); LYMPHOCYTES ABSOLUTE AUTO 0.94 K/mm3 (0.84-5.20); LYMPHOCYTES PERCENT AUTO 25 % (21-46); MONOCYTES ABSOLUTE AUTO 0.37 K/mm3 (0.16-1.47); MONOCYTES PERCENT AUTO 10 % (4-13); Mean Corpuscular HGB 28.6 pg (26.0-34.0); Mean Corpuscular HGB Conc 33.7 g/dL (31.5-36.5); Mean Corpuscular Volume 85 fL (80-100); NEUTROPHILS ABSOLUTE AUTO 2.42 K/mm3 (1.96-9.15); NEUTROPHILS PERCENT AUTO 64 % (41-73); RDW Standard Deviation 43.1 fL (35.1-46.3); Red Blood Cell Count 4.75 M/mm3 (3.80-5.20); White Blood Cell Count 3.77 K/mm3 (4.00-11.30)
[2021-05-25 01:28] LABS: Mean Platelet Volume 11.3 fL (9.1-12.4); Platelet Count 153 K/mm3 (150-400)
[2021-05-25 01:39] LABS: Alanine Aminotransfer (ALT/SGP 24 U/L (12-78); Albumin, Blood 3.2 g/dL (3.4-5.0); Albumin/Globulin Ratio 0.9 (0.8-1.8); Alk Phos 58 U/L (50-136); Anion Gap 6 mmol/L (6-16); Aspartate Aminotrans (AST/SGOT 32 U/L (12-37); Bilirubin, Total 0.4 mg/dL (0.1-1.0); Blood Urea Nitrogen 16 mg/dL (8-24); Bun/Creatinine Ratio 19.8 (12.0-20.0); CO2, Blood 27 mmol/L (21-32); Calcium, Blood 7.9 mg/dL (8.5-10.1); Chloride, Blood 99 mmol/L (98-108); Creatinine, Blood 0.81 mg/dL (0.40-1.00); Globulin, Blood 3.4 g/dL (2.2-4.0); Glomerular Filtration Rate >60 (60-); Glucose, Blood 79 mg/dL (70-99); Potassium, Blood 4.3 mmol/L (3.5-5.5); Sodium, Blood 132 mmol/L (136-145); Total Protein, Blood 6.6 g/dL (6.4-8.2); Troponin I <0.015 ng/mL (0.000-0.040)
== END 2021-05-25 06:08 | disposition home or self-care (01) ==
LOC: ER 00:42
PROVIDERS: Emergency Medicine
DX: U07.1 COVID-19 (principal); J43.9 Emphysema, unspecified; Z99.81 Dependence on supplemental oxygen
CPT/HCPCS: 71045; 80053; 83880; 84484; 85025; 93005; 93010; 96361; 96375; 99284-25; J2405; J3010; J7030; M0243; Q0243

== ENCOUNTER 2021-09-29 03:16 | Emergency (ER) | payer MEDICARE, OTHER ==
[~2021-09-29] VITALS: Ht 167.6 cm; Wt 67.1 kg
[~2021-09-29 03:16] MED LIST changes: +ACYCLOVIR800 MG PO; +Norco 5-325 Ta1 EACH PO
[2021-09-29] MEDS ORDERED: ALBU90OI INH ×2 (03:31→05:42)
[2021-09-29 03:41] LABS: BASOPHILS ABSOLUTE AUTO 0.05 K/mm3 (0.00-0.23); BASOPHILS PERCENT AUTO 1 % (0-2); EOSINOPHILS PERCENT AUTO 6 % (0-6); Hematocrit 39.3 % (33.0-51.0); Hemoglobin 12.9 g/dL (11.5-16.0); IMMATURE GRAN ABSOLUTE AUTO 0.03 K/mm3 (0.00-0.10); IMMATURE GRAN PERCENT AUTO 0 % (0-1); LYMPHOCYTES ABSOLUTE AUTO 2.48 K/mm3 (0.84-5.20); LYMPHOCYTES PERCENT AUTO 25 % (21-46); MONOCYTES ABSOLUTE AUTO 0.76 K/mm3 (0.16-1.47); MONOCYTES PERCENT AUTO 8 % (4-13); Mean Corpuscular HGB 29.9 pg (26.0-34.0); Mean Corpuscular HGB Conc 32.8 g/dL (31.5-36.5); Mean Corpuscular Volume 91 fL (80-100); Mean Platelet Volume 10.7 fL (9.1-12.4); NEUTROPHILS ABSOLUTE AUTO 5.86 K/mm3 (1.96-9.15); NEUTROPHILS PERCENT AUTO 60 % (41-73); Platelet Count 257 K/mm3 (150-400); RDW Coefficient Variation 14.2 % (11.7-14.2); RDW Standard Deviation 47.8 fL (35.1-46.3); Red Blood Cell Count 4.32 M/mm3 (3.80-5.20); White Blood Cell Count 9.78 K/mm3 (4.00-11.30)
[2021-09-29 04:37] LABS: Alanine Aminotransfer (ALT/SGP 16 U/L (12-78); Albumin, Blood 3.3 g/dL (3.4-5.0); Albumin/Globulin Ratio 1.3 (0.8-1.8); Alk Phos 78 U/L (50-136); Anion Gap 5 mmol/L (6-16); Aspartate Aminotrans (AST/SGOT 15 U/L (12-37); Bilirubin, Total 0.3 mg/dL (0.1-1.0); Blood Urea Nitrogen 13 mg/dL (8-24); Bun/Creatinine Ratio 15.6 (12.0-20.0); CO2, Blood 30 mmol/L (21-32); Calcium, Blood 8.9 mg/dL (8.5-10.1); Chloride, Blood 104 mmol/L (98-108); Creatinine, Blood 0.83 mg/dL (0.40-1.00); Globulin, Blood 2.6 g/dL (2.2-4.0); Glomerular Filtration Rate >60 (60-); Glucose, Blood 105 mg/dL (70-99); Potassium, Blood 4.4 mmol/L (3.5-5.5); Sodium, Blood 139 mmol/L (136-145); Total Protein, Blood 5.9 g/dL (6.4-8.2); Troponin I <0.015 ng/mL (0.000-0.040)
[2021-09-29 05:22] LABS: Influenza A, PCR NEGATIVE (NEGATIVE); Influenza B, PCR NEGATIVE (NEGATIVE); Resp Syncytial Virus, PCR NEGATIVE (NEGATIVE); SARS-Cov-2 (COVID-19) PCR, MMC NEGATIVE (NEGATIVE)
[2021-09-29] MEDS ORDERED: AZIT250 PO (05:42)
== END 2021-09-29 09:22 | disposition home or self-care (01) ==
LOC: ER 03:16
PROVIDERS: Emergency Medicine
DX: J44.1 Chronic obstructive pulmonary disease with (acute) exacerbation (principal); J44.0 Chronic obstructive pulmonary disease with (acute) lower respiratory infection; J20.9 Acute bronchitis, unspecified; Z20.822 Contact with and (suspected) exposure to COVID-19; Z88.0 Allergy status to penicillin; Z88.5 Allergy status to narcotic agent; Z88.8 Allergy status to other drugs, medicaments and biological substances; Z79.899 Other long term (current) drug therapy
CPT/HCPCS: 0241U; 36415; 71046; 80053; 84484; 85025; 93005; 93010; J7030

== ENCOUNTER 2022-01-28 09:52 | Inpatient (IN) | payer MEDICARE, OTHER ==
[~2022-01-28] VITALS: Ht 162.6 cm; Wt 55.5 kg
[2022-01-28 10:18] LABS: Hematocrit 50.4 % (33.0-51.0); Hemoglobin 15.7 g/dL (11.5-16.0); Mean Corpuscular HGB 29.1 pg (26.0-34.0); Mean Corpuscular HGB Conc 31.2 g/dL (31.5-36.5); Mean Corpuscular Volume 94 fL (80-100); Mean Platelet Volume 11.2 fL (9.1-12.4); Platelet Count 351 K/mm3 (150-400); RDW Coefficient Variation 13.7 % (11.7-14.2); RDW Standard Deviation 47.4 fL (35.1-46.3); Red Blood Cell Count 5.39 M/mm3 (3.80-5.20); White Blood Cell Count 12.48 K/mm3 (4.00-11.30)
[2022-01-28 10:21] LABS: PCO2 Arterial 65.6 mmHg (35-45); PO2 Arterial 383 mmHg (80-100); pH Blood Arterial 7.28 (7.35-7.45)
[2022-01-28 10:38] LABS: BASOPHILS PERCENT MAN 0 % (0-2); EOSINOPHILS ABSOLUTE MAN 1.12 K/mm3 (0.00-0.68); EOSINOPHILS PERCENT MAN 9 % (0-6); LYMPHOCYTES ABSOLUTE MAN 5.61 K/mm3 (0.84-5.20); LYMPHOCYTES PERCENT MAN 45 % (21-46); MONOCYTES ABSOLUTE MAN 0.87 K/mm3 (0.16-1.47); MONOCYTES PERCENT MAN 7 % (4-13); NEUTROPHILS ABSOLUTE MAN 4.86 K/mm3 (1.96-9.15); SEG NEUTROPHILS PERCENT MAN 39 % (41-73); TOTAL CELLS COUNTED 100
[2022-01-28 10:42] LABS: Alanine Aminotransfer (ALT/SGP 24 U/L (12-78); Albumin, Blood 3.9 g/dL (3.4-5.0); Albumin/Globulin Ratio 1.1 (0.8-1.8); Alk Phos 99 U/L (50-136); Anion Gap 3 mmol/L (6-16); Aspartate Aminotrans (AST/SGOT 19 U/L (12-37); Bilirubin, Total 0.3 mg/dL (0.1-1.0); Blood Urea Nitrogen 8 mg/dL (8-24); Bun/Creatinine Ratio 10.1 (12.0-20.0); CO2, Blood 34 mmol/L (21-32); Calcium, Blood 9.1 mg/dL (8.5-10.1); Chloride, Blood 105 mmol/L (98-108); Creatinine, Blood 0.79 mg/dL (0.40-1.00); Globulin, Blood 3.6 g/dL (2.2-4.0); Glomerular Filtration Rate >60 (60-); Glucose, Blood 144 mg/dL (70-99); Potassium, Blood 4.6 mmol/L (3.5-5.5); Sodium, Blood 142 mmol/L (136-145); Total Protein, Blood 7.5 g/dL (6.4-8.2)
[2022-01-28 11:45] LABS: Base Excess Venous 4.8 mmol/L; Bicarbonate Venous 27.2 mmol/L (24.0-30.0); PCO2 Venous 59.6 mmHg (38-42); PO2 Venous 152 mmHg (38-42); pH Blood Venous 7.32 (7.34-7.37)
[2022-01-28 13:04] LABS: Influenza A, PCR NEGATIVE (NEGATIVE); Influenza B, PCR NEGATIVE (NEGATIVE); Resp Syncytial Virus, PCR NEGATIVE (NEGATIVE); SARS-Cov-2 (COVID-19) PCR, MMC NEGATIVE (NEGATIVE)
[2022-01-28] MEDS ORDERED: AMITRIPTYLINE150 M1 PO (13:15)
[2022-01-28] MEDS ORDERED: GABA300 PO (13:17)
[2022-01-28] MEDS ORDERED: METO25ER PO (13:18)
[2022-01-28] MEDS ORDERED: MIRAPEX0.25 M1 PO (13:19)
--- NOTE | 2022-01-28 16:30 | NUR ---
PT ARRIVED TO ROOM 301 FROM ER, PT ASSISTED TO STAND AND GET INTO BED. SHE IS VERY WEAK AND SHAKEY. VS OBTAINED, PT ORIENTED TO ROOM, PHONES AND CALL SYSTEM. PT A/O, 3LNC AND PT IS WHEEZY WITH COUGHING. LEFT HAND AND RAC IV PATENT. CALL MACDONALD IN REACH, BED IN LOWEST POSITION, WILL MONITOR.
--- NOTE | 2022-01-28 18:48 | NUR ---
Spiritual Care Visit Request Pt. is in bed, and welcomes my visit. Family memebers are present. Pt. is very unsettled by the scre she had at home. Pt. verbalized the need for home health assistance. Listen empathetically and provide a calming presence. Pt. verbalized that she has 3000 protestant poems, and she would like me to read some. Pt. displayed evidence of reduced anxiety. Prayed with Pt. Pt. verbalized gratitude for the spiritual care visit.
[2022-01-29 05:16] LABS: BASOPHILS ABSOLUTE AUTO 0.01 K/mm3 (0.00-0.23); BASOPHILS PERCENT AUTO 0 % (0-2); EOSINOPHILS PERCENT AUTO 0 % (0-6); Hematocrit 40.3 % (33.0-51.0); Hemoglobin 12.9 g/dL (11.5-16.0); IMMATURE GRAN ABSOLUTE AUTO 0.03 K/mm3 (0.00-0.10); IMMATURE GRAN PERCENT AUTO 1 % (0-1); LYMPHOCYTES ABSOLUTE AUTO 0.89 K/mm3 (0.84-5.20); LYMPHOCYTES PERCENT AUTO 15 % (21-46); MONOCYTES ABSOLUTE AUTO 0.06 K/mm3 (0.16-1.47); MONOCYTES PERCENT AUTO 1 % (4-13); Mean Corpuscular HGB 29.1 pg (26.0-34.0); Mean Corpuscular Volume 91 fL (80-100); Mean Platelet Volume 11.8 fL (9.1-12.4); NEUTROPHILS ABSOLUTE AUTO 5.03 K/mm3 (1.96-9.15); NEUTROPHILS PERCENT AUTO 84 % (41-73); Platelet Count 270 K/mm3 (150-400); RDW Coefficient Variation 13.5 % (11.7-14.2); RDW Standard Deviation 45.1 fL (35.1-46.3); Red Blood Cell Count 4.44 M/mm3 (3.80-5.20); White Blood Cell Count 6.02 K/mm3 (4.00-11.30)
[2022-01-29 05:55] LABS: Alanine Aminotransfer (ALT/SGP 21 U/L (12-78); Albumin, Blood 3.3 g/dL (3.4-5.0); Albumin/Globulin Ratio 1.1 (0.8-1.8); Alk Phos 80 U/L (50-136); Anion Gap 6 mmol/L (6-16); Aspartate Aminotrans (AST/SGOT 12 U/L (12-37); Bilirubin, Total 0.3 mg/dL (0.1-1.0); Blood Urea Nitrogen 11 mg/dL (8-24); Bun/Creatinine Ratio 15.9 (12.0-20.0); CO2, Blood 31 mmol/L (21-32); Calcium, Blood 9.5 mg/dL (8.5-10.1); Chloride, Blood 102 mmol/L (98-108); Creatinine, Blood 0.69 mg/dL (0.40-1.00); Globulin, Blood 3.1 g/dL (2.2-4.0); Glomerular Filtration Rate >60 (60-); Glucose, Blood 149 mg/dL (70-99); Potassium, Blood 4.6 mmol/L (3.5-5.5); Sodium, Blood 139 mmol/L (136-145); Total Protein, Blood 6.4 g/dL (6.4-8.2)
--- NOTE | 2022-01-29 06:20 | NUR ---
SHIFT SUMMARY: PATIENT REQUESTED PRN MELATONIN FOR INSOMNIA AND TYLENOL FOR HEADACHE AT HS AND HAD GOOD EFFECT FROM BOTH. UP INDEPENDANT IN THE ROOM WITH A STEADY GAIT.
--- NOTE | 2022-01-29 06:42 | NUR ---
SHIFT SUMMARY: PATIENT HAS A VERY HARSH MINIMALLY PRODUCTIVE COUGH. DR BROWN WAS NOTIFIED AND PRN TESSELON PEARLS WERE ORDERED AND MED WAS GIVEN WITH POOR EFFECT. AT TIMES PATIENT HAS DIFFICULTY RECOVERING FROM COUGHING SPELL. MAINTAINS 02 SATS AT 100% ON 3L NC, WHICH IS HOME 02 BASELINE.
--- NOTE | 2022-01-29 16:37 | NUR ---
DAY SHIFT SUMMARY 66 YR OLD FEMALE ADMITTED WITH ACUTE RESPIRATORY FAILURE. PT HAS HAD SEVERAL TX FROM RT THIS SHIFT. PT ALSO HAD A PHYSICAL THERAPY EVAL. 3L O2 NC BASELINE AT HOME, PT IS AT BASELINE HERE. MEDICATED PER EMAR. SEVERE AND VIOLENT COUGHING. PT IS A 2 MIN ASSIST TO BSC. PT HAS BEEN UP FOR MEALS. A/O X4. CALL LIGHT WITHIN REACH AND ABLE TO CALL APPROPRIATELY. PT IS ON TELE WITH SINUS TACH AT 114.
[2022-01-30 05:02] LABS: Base Excess Venous 7.7 mmol/L; Bicarbonate Venous 30.8 mmol/L (24.0-30.0); PCO2 Venous 42.1 mmHg (38-42); PO2 Venous 141 mmHg (38-42); pH Blood Venous 7.48 (7.34-7.37)
[2022-01-30 05:05] LABS: BASOPHILS ABSOLUTE AUTO 0.01 K/mm3 (0.00-0.23); BASOPHILS PERCENT AUTO 0 % (0-2); EOSINOPHILS PERCENT AUTO 0 % (0-6); Hematocrit 40.6 % (33.0-51.0); Hemoglobin 13.3 g/dL (11.5-16.0); IMMATURE GRAN ABSOLUTE AUTO 0.05 K/mm3 (0.00-0.10); IMMATURE GRAN PERCENT AUTO 1 % (0-1); LYMPHOCYTES ABSOLUTE AUTO 0.95 K/mm3 (0.84-5.20); LYMPHOCYTES PERCENT AUTO 11 % (21-46); MONOCYTES ABSOLUTE AUTO 0.31 K/mm3 (0.16-1.47); MONOCYTES PERCENT AUTO 4 % (4-13); Mean Corpuscular HGB 29.5 pg (26.0-34.0); Mean Corpuscular HGB Conc 32.8 g/dL (31.5-36.5); Mean Corpuscular Volume 90 fL (80-100); Mean Platelet Volume 11.6 fL (9.1-12.4); NEUTROPHILS ABSOLUTE AUTO 7.45 K/mm3 (1.96-9.15); NEUTROPHILS PERCENT AUTO 85 % (41-73); Platelet Count 258 K/mm3 (150-400); RDW Coefficient Variation 13.8 % (11.7-14.2); RDW Standard Deviation 44.9 fL (35.1-46.3); Red Blood Cell Count 4.51 M/mm3 (3.80-5.20); White Blood Cell Count 8.77 K/mm3 (4.00-11.30)
--- NOTE | 2022-01-30 05:21 | NUR ---
SHIFT SUMMARY: PATIENT CONTINUES TO HAVE HARSH MINIMALLY PRODUCTIVE COUGH. PATIENT GETS ANXIOUS WITH COUGHING SPELLS. SETTING BED ALARM OFF X2. WAS FOUND NAKED STANDING AT THE BEDSIDE URINATING ON THE FLOOR AND A SECOND TIME TRYING TO AMB. TO THE BATHROOM. BOTH TIMES 02 WAS OFF. TESSELON PEARLS WERE GIVEN FOR COUGH WITH GOOD EFFECT. BED ALARM IS ON WITH CALL MACDONALD WITH IN REACH.
[2022-01-30 05:59] LABS: Anion Gap 5 mmol/L (6-16); Blood Urea Nitrogen 21 mg/dL (8-24); CO2, Blood 31 mmol/L (21-32); Calcium, Blood 9.4 mg/dL (8.5-10.1); Chloride, Blood 102 mmol/L (98-108); Creatinine, Blood 0.62 mg/dL (0.40-1.00); Glomerular Filtration Rate >60 (60-); Glucose, Blood 137 mg/dL (70-99); Potassium, Blood 4.5 mmol/L (3.5-5.5); Sodium, Blood 138 mmol/L (136-145)
--- NOTE | 2022-01-30 16:28 | NUR ---
DAY SHIFT SUMMARY 66 YR OLD FEMALE WITH ACUTE RESP FAILURE. PLAN IS TO D/C HOME WITH HOME HEALTH TOMORROW. PT IS SEEN BY RT AND PT. TELE D/C'D TODAY, LAST READING SINUS TACH AT 105. PT ON 2L NC WITH O2 SATS RANGING IN THE 92-98% RANGE. PT 1 PERSON ASSIST TO BSC. CALL LIGHT WITHIN REACH AND ABLE TO CALL APPROPRIATELY.
--- NOTE | 2022-01-31 03:20 | NUR ---
SUMMARY: PT A/OX4, INDEPENDENT IN ROOM AND CALLS APPROPRIATELY TO SPECIFY NEEDS. SHE OCCASIONALLY EXHIBITS ODD/NONSENSICAL BEHAVIOR AND POOR JUDGEMENT. PT SHOWERED THIS SHIFT BUT URINATED ON THE FLOOR AFTERWARD THEN INFORMED STAFF SHE'D DONE SO INTENTIONALLY. SHE ALSO STRUNG TOILET PAPER T/O THE BATHROOM W/A BIZARRE EXPLANATION GIVEN FOR RATIONALE, REMINDERS AND EDUCATION PROVIDED. PT REMAINS ON 2L O2 T/O NOCTE W/SPO2 WNL AND NO S/S RESP DISTRESS OBSERVED. LS ARE TIGHT AND PT CONT'S TO HAVE HARSH COUGHING FITS AT TIMES, PARTICULARLY AFTER BX TX'S. TESSALON PERLS AND MUCINEX RECIEVED FOR GOOD EFFECT. SHE ALSO BECAME ANXIOUS AND TEARFUL AT THE START OF SHIFT AFTER A CONVERSATION W/HER SON REGARDING PRESCRIPTION MED COSTS. PT EXPRESSED BEING UNABLE TO AFFORD THEM AND DIDN'T KNOW HOW TO PRIORITIZE NEED. REASSURANCE PROVIDED AND SS CX RX'D TO DISCUSS POSS FINANCIAL ASSISTANCE. PT IS MEANT TO D/C HOME W/HOME HEALTH TODAY SO WILL DISCUSS W/DAY RN. NO ACUTE CHANGES, VSS/AFEBRILE. WCTM AND REPORT TO DAY RN.
--- NOTE | 2022-01-31 10:21 | NUR ---
PT PLEASANT BUT DEMANDING, STATES READY TO GO HOME. A/O X3 SOME FORGETFUL. H/R REG, NO MURMUR. NO TELE. LUNGS EXP WHEEZES. ON R/A. RESP EASY, UNLABORED. TALKS 8+WORD SENTENCES. OCC DRY COUGH. TALKS MUCH. BT X4 LAST BM STATES LAST BM X2 DAYS. VOID INDEPENDANT TO BATHROOM. WALKING ABOUT ROOM REGULARLY. BED IN LOW POSITION, CALL LITE IN REACH, CALLS APPROP
[2022-01-31] MEDS ORDERED: GUAI600T33 PO (10:43)
[2022-01-31] MEDS ORDERED: Prednisone10 MG PO (10:44)
[2022-01-31] MEDS ORDERED: ALBU2.5V5 INH (10:54)
--- NOTE | 2022-01-31 11:03 | NUR ---
DISCHARGE REVIEWD WITH PT. IV PULLED INTACT. NO TELE. PT VERBALIZED UNDERSTANDING MEDS AND INSTRUCTONS. WHEELED TO DOOR BY AIDE AT 110
== END 2022-01-31 11:11 | disposition home or self-care (01) | DRG 189 ==
LOC: ER 09:52 → PCU 13:18 → MEDS 16:26
PROVIDERS: Internal Medicine; Student in an Organized Health Care Education/Training Program; ADMIT Internal Medicine
PROC: 5A09357 Assistance with Respiratory Ventilation, Less than 24 Consecutive Hours, Continuous Positive Airway Pressure (ICD-10-PCS; principal; 2022-01-28)
DX: J96.01 Acute respiratory failure with hypoxia (principal); J44.1 Chronic obstructive pulmonary disease with (acute) exacerbation; J96.02 Acute respiratory failure with hypercapnia; Z20.822 Contact with and (suspected) exposure to COVID-19; Z66 Do not resuscitate; F31.9 Bipolar disorder, unspecified; G62.9 Polyneuropathy, unspecified; Z88.0 Allergy status to penicillin; Z91.19 Patient's noncompliance with other medical treatment and regimen; Z88.5 Allergy status to narcotic agent; Z88.8 Allergy status to other drugs, medicaments and biological substances; Z79.899 Other long term (current) drug therapy; Z87.891 Personal history of nicotine dependence; Z99.81 Dependence on supplemental oxygen; Z90.49 Acquired absence of other specified parts of digestive tract; Z90.710 Acquired absence of both cervix and uterus; Z98.890 Other specified postprocedural states
CPT/HCPCS: 0241U; 36415; 36600; 71045; 80048; 80053; 82803; 83735; 83880; 84484; 85025; 93005; 93010; 94640; 94644; 94660; 94664; 94760; 96365; 96368; 96375; 97110; 97162; 99285-25; A9270; J0456; J1650; J2930; J3475; J7050; J7060; J7512

== ENCOUNTER 2022-05-31 07:17 | Emergency (ER) | payer MEDICARE, OTHER | END 2022-05-31 12:04 | disposition home or self-care (01) | LOC: ER 07:17 | DX: J43.9 Emphysema, unspecified (principal); B34.9 Viral infection, unspecified; Z87.891 Personal history of nicotine dependence; Z79.899 Other long term (current) drug therapy; Z88.8 Allergy status to other drugs, medicaments and biological substances; Z88.0 Allergy status to penicillin; Z88.5 Allergy status to narcotic agent; Z20.822 Contact with and (suspected) exposure to COVID-19 ==

== ENCOUNTER 2022-11-17 02:55 | Emergency (ER) | payer MEDICARE, OTHER ==
[~2022-11-17] VITALS: Ht 172.7 cm; Wt 69.8 kg
[~2022-11-17 02:55] MED LIST changes: +ALBU2.5V5 INH; +AMITRIPTYLINE150 M1 PO; +GUAI600T33 PO; +MIRAPEX0.25 M1 PO
[2022-11-17 03:29] LABS: BASOPHILS ABSOLUTE AUTO 0.05 K/mm3 (0.00-0.23); BASOPHILS PERCENT AUTO 0 % (0-2); EOSINOPHILS ABSOLUTE AUTO 0.26 K/mm3 (0.00-0.68); EOSINOPHILS PERCENT AUTO 2 % (0-6); Hematocrit 41.7 % (33.0-51.0); Hemoglobin 13.8 g/dL (11.5-16.0); IMMATURE GRAN ABSOLUTE AUTO 0.06 K/mm3 (0.00-0.10); IMMATURE GRAN PERCENT AUTO 1 % (0-1); LYMPHOCYTES ABSOLUTE AUTO 3.22 K/mm3 (0.84-5.20); LYMPHOCYTES PERCENT AUTO 26 % (21-46); MONOCYTES ABSOLUTE AUTO 0.67 K/mm3 (0.16-1.47); MONOCYTES PERCENT AUTO 5 % (4-13); Mean Corpuscular HGB 29.4 pg (26.0-34.0); Mean Corpuscular HGB Conc 33.1 g/dL (31.5-36.5); Mean Corpuscular Volume 89 fL (80-100); Mean Platelet Volume 10.7 fL (9.1-12.4); NEUTROPHILS ABSOLUTE AUTO 8.38 K/mm3 (1.96-9.15); NEUTROPHILS PERCENT AUTO 66 % (41-73); Platelet Count 307 K/mm3 (150-400); RDW Coefficient Variation 14.7 % (11.7-14.2); Red Blood Cell Count 4.69 M/mm3 (3.80-5.20); White Blood Cell Count 12.64 K/mm3 (4.00-11.30)
[2022-11-17 03:45] LABS: Albumin, Blood 3.4 g/dL (3.4-5.0); Albumin/Globulin Ratio 1.1 (0.8-1.8); Bilirubin, Total 0.5 mg/dL (0.1-1.0); Calcium, Blood 9.2 mg/dL (8.5-10.1); Creatinine, Blood 0.8 mg/dL (0.40-1.00); Globulin, Blood 3.1 g/dL (2.2-4.0); Potassium, Blood 4.8 mmol/L (3.5-5.5); Total Protein, Blood 6.5 g/dL (6.4-8.2)
[2022-11-17] MEDS ORDERED: PRED20 PO (06:36)
[2022-11-17] MEDS ORDERED: BENZ100A PO (06:36)
== END 2022-11-17 07:20 | disposition home or self-care (01) ==
LOC: ER 02:55
PROVIDERS: Registered Nurse
DX: J44.1 Chronic obstructive pulmonary disease with (acute) exacerbation (principal); Z88.5 Allergy status to narcotic agent; Z88.0 Allergy status to penicillin; Z88.8 Allergy status to other drugs, medicaments and biological substances; Z79.899 Other long term (current) drug therapy; Z87.891 Personal history of nicotine dependence
CPT/HCPCS: 71046; 71260; 80053; 83690; 83880; 84484; 85025; 85379; 93005; 93010; 99285-25; J7512; Q9967

== ENCOUNTER 2023-03-02 07:25 | Inpatient (IN) | payer MEDICARE, OTHER ==
[2023-03-02 08:05] LABS: BASOPHILS ABSOLUTE AUTO 0.04 K/mm3 (0.00-0.23); BASOPHILS PERCENT AUTO 1 % (0-2); EOSINOPHILS ABSOLUTE AUTO 0.33 K/mm3 (0.00-0.68); EOSINOPHILS PERCENT AUTO 4 % (0-6); Hematocrit 46.8 % (33.0-51.0); Hemoglobin 14.8 g/dL (11.5-16.0); IMMATURE GRAN ABSOLUTE AUTO 0.04 K/mm3 (0.00-0.10); IMMATURE GRAN PERCENT AUTO 1 % (0-1); LYMPHOCYTES ABSOLUTE AUTO 2.22 K/mm3 (0.84-5.20); LYMPHOCYTES PERCENT AUTO 25 % (21-46); MONOCYTES PERCENT AUTO 7 % (4-13); Mean Corpuscular HGB 29.1 pg (26.0-34.0); Mean Corpuscular HGB Conc 31.6 g/dL (31.5-36.5); Mean Corpuscular Volume 92 fL (80-100); NEUTROPHILS ABSOLUTE AUTO 5.65 K/mm3 (1.96-9.15); NEUTROPHILS PERCENT AUTO 64 % (41-73); RDW Coefficient Variation 14.5 % (11.7-14.2); RDW Standard Deviation 49.1 fL (35.1-46.3); Red Blood Cell Count 5.09 M/mm3 (3.80-5.20); White Blood Cell Count 8.88 K/mm3 (4.00-11.30)
[2023-03-02 08:06] LABS: Bicarbonate Venous 28.9 mmol/L (24.0-30.0); PCO2 Venous 66.4 mmHg (38-42); pH Blood Venous 7.33 (7.34-7.37)
[2023-03-02 09:04] LABS: Albumin, Blood 3.5 g/dL (3.4-5.0); Bilirubin, Total 0.4 mg/dL (0.1-1.0); Bun/Creatinine Ratio 20.2 (12.0-20.0); Calcium, Blood 8.7 mg/dL (8.5-10.1); Creatinine, Blood 0.79 mg/dL (0.40-1.00); Globulin, Blood 3.5 g/dL (2.2-4.0); Magnesium, Blood 2.2 mg/dL (1.6-2.4); Potassium, Blood 3.9 mmol/L (3.5-5.5)
[2023-03-02 09:20] LABS: Mean Platelet Volume 10.5 fL (9.1-12.4); Platelet Count 238 K/mm3 (150-400)
[2023-03-02] MEDS ORDERED: AMITRIPTYLINE150 M1 PO (11:27)
[2023-03-02] MEDS ORDERED: GUAI600T33 PO (11:28)
[2023-03-02] MEDS ORDERED: METO25ER PO (11:29)
--- NOTE | 2023-03-02 14:50 | NUR ---
ADMIT PT REPORT RECEIVED FROM ER. PT ARRIVED VIA GURNEY WITHOUT OXYUGEN OR OXYGEN TUBING. PT TRANSFERED WITH 1 ASSIST TO NEW BED. MILD SOB WITH ACTIVTY. PT SLAPPED NURSE IN THE BUTT SEVERAL TIMES. SHE WAS FRUSTRATED THAT HER SLAPPING WASN'T OK. CONTINUE POC.
[2023-03-02 15:05] VITALS: BP 109/66
--- NOTE | 2023-03-02 16:26 | NUR ---
COMFORT PT C/O OFO CHEST WALL/RIB PAIN. MEDCIATED WITH TYLENOL AND STARTED A KPAD FOR HER. SHE REALLY LIKES THE WARM PAD. CHEST WALL PAIN BETTER. CONTINUE POC.
[2023-03-02 19:58] VITALS: BP 118/83
--- NOTE | 2023-03-03 04:34 | NUR ---
SHIFT SUMMARY 67 YR F ADMITTED ON 03/02/23 FOR COPD EXACERBATION. FULL CODE. PT HAD A COUGHING FIT AT 0430 THIS SHIFT. SHE WAS GIVEN TESSALON PEARLS AND CUP OF HOT TEA WHICH WORKED GREAT AT EASING HER COUGH. SHE IS A VERY PLEASANT WOMAN AND IS COOPERATIVE WITH CARE BUT SHE GETS VERY ANXIOUS WHEN BEING ASSISTED TO THE BEDSIDE COMMODE. SHE IS WEAK AND AFRAID OF FALLING.
[2023-03-03 04:43] VITALS: BP 126/72
[2023-03-03 05:44] LABS: Hematocrit 41.4 % (33.0-51.0); Hemoglobin 13.6 g/dL (11.5-16.0); Mean Corpuscular HGB 29.6 pg (26.0-34.0); Mean Corpuscular HGB Conc 32.9 g/dL (31.5-36.5); Mean Corpuscular Volume 90 fL (80-100); Mean Platelet Volume 10.6 fL (9.1-12.4); Platelet Count 269 K/mm3 (150-400); RDW Coefficient Variation 14.5 % (11.7-14.2); RDW Standard Deviation 47.6 fL (35.1-46.3); White Blood Cell Count 18.74 K/mm3 (4.00-11.30)
[2023-03-03 06:21] LABS: Albumin, Blood 3.2 g/dL (3.4-5.0); Albumin/Globulin Ratio 1.1 (0.8-1.8); Bilirubin, Total 0.6 mg/dL (0.1-1.0); Bun/Creatinine Ratio 25.3 (12.0-20.0); Calcium, Blood 8.8 mg/dL (8.5-10.1); Creatinine, Blood 0.63 mg/dL (0.40-1.00); Globulin, Blood 2.9 g/dL (2.2-4.0); Magnesium, Blood 2.6 mg/dL (1.6-2.4); Potassium, Blood 4.4 mmol/L (3.5-5.5); Total Protein, Blood 6.1 g/dL (6.4-8.2)
[2023-03-03 07:34] VITALS: BP 92/53
[2023-03-03 07:35] VITALS: BP 119/63
[2023-03-03 15:28] VITALS: BP 131/73
--- NOTE | 2023-03-03 17:00 | NUR ---
SHIFT SUMMARY PT IS ALERT AND ORIENTED X4. SHE WAS ANXIOUS THROUGHOUT DAY AND WANTING TO LEAVE. EDUCATED PT ON IMPORTANCE AND BENEFITS OF FINISHING RECOMMENDED TREATMENT. PT AGREED. TEARFUL AT TIMES. ABLE TO PIVOT TO BEDSIDE COMMODE WITHOUT ASSISTANCE. PT REPORTED NAUSEA. TREATED PER EMAR. NO ACUTE CHANGES THIS SHIFT
[2023-03-03 19:22] VITALS: BP 111/67
--- NOTE | 2023-03-04 01:15 | NUR ---
Patient left hospital - I was notified by the ROOF BOLTER OPERATOR that pt was no longer in their room at 0050. Notified charge nurse, security, and nursing melter supervisor open hearth furnace. Security states they saw her leaving this hospital and are going to attempt to talk her into coming back.
--- NOTE | 2023-03-04 02:34 | NUR ---
Pt AMA Pt has been d/c d/t being AMA for more than 1 hour. Son Dimitris has been notified.
== END 2023-03-04 02:06 | disposition left against medical advice (07) | DRG 189 ==
LOC: ER 07:25 → MEDS 11:22
PROVIDERS: Student in an Organized Health Care Education/Training Program; ADMIT Internal Medicine
DX: J96.21 Acute and chronic respiratory failure with hypoxia (principal); E43 Unspecified severe protein-calorie malnutrition; E87.29 Other acidosis; I50.22 Chronic systolic (congestive) heart failure; J96.22 Acute and chronic respiratory failure with hypercapnia; J43.9 Emphysema, unspecified; K58.9 Irritable bowel syndrome, unspecified; G47.30 Sleep apnea, unspecified; E88.09 Other disorders of plasma-protein metabolism, not elsewhere classified; F32.A Depression, unspecified; Z68.21 Body mass index [BMI] 21.0-21.9, adult; G62.9 Polyneuropathy, unspecified; Z53.21 Procedure and treatment not carried out due to patient leaving prior to being seen by health care provider; Z87.19 Personal history of other diseases of the digestive system; Z99.81 Dependence on supplemental oxygen; Z90.49 Acquired absence of other specified parts of digestive tract; Z90.710 Acquired absence of both cervix and uterus; Z96.651 Presence of right artificial knee joint; Z87.891 Personal history of nicotine dependence; Z88.0 Allergy status to penicillin; Z88.6 Allergy status to analgesic agent; Z88.8 Allergy status to other drugs, medicaments and biological substances; Z79.899 Other long term (current) drug therapy
CPT/HCPCS: 36415; 71045; 80053; 82803; 83735; 83880; 84145; 84484; 85025; 85027; 85049; 93005; 93010; 94640; 94644; 94645; 94664; 94762; 96365; 96375; 99285-25; A9270; J1650; J2405; J2930; J3475

== ENCOUNTER → 2023-04-20 | Outpatient (CLI) | payer MEDICARE, OTHER | END | disposition home or self-care (01) | LOC: LAB 18:02 → LAB SHORT 18:02 | DX: R30.0 Dysuria (principal) | CPT/HCPCS: 87086 ==

== ENCOUNTER 2023-06-03 15:55 | Emergency (ER) | payer MEDICARE, OTHER ==
[~2023-06-03] VITALS: Ht 167.6 cm; Wt 56.7 kg
[2023-06-03 16:26] LABS: BASOPHILS ABSOLUTE AUTO 0.04 K/mm3 (0.00-0.23); BASOPHILS PERCENT AUTO 0 % (0-2); EOSINOPHILS ABSOLUTE AUTO 0.24 K/mm3 (0.00-0.68); EOSINOPHILS PERCENT AUTO 2 % (0-6); Hematocrit 42.5 % (33.0-51.0); IMMATURE GRAN ABSOLUTE AUTO 0.04 K/mm3 (0.00-0.10); IMMATURE GRAN PERCENT AUTO 0 % (0-1); LYMPHOCYTES PERCENT AUTO 33 % (21-46); MONOCYTES ABSOLUTE AUTO 0.93 K/mm3 (0.16-1.47); MONOCYTES PERCENT AUTO 8 % (4-13); Mean Corpuscular HGB 29.9 pg (26.0-34.0); Mean Corpuscular HGB Conc 32.9 g/dL (31.5-36.5); Mean Corpuscular Volume 91 fL (80-100); Mean Platelet Volume 11.4 fL (9.1-12.4); NEUTROPHILS ABSOLUTE AUTO 6.56 K/mm3 (1.96-9.15); NEUTROPHILS PERCENT AUTO 56 % (41-73); Platelet Count 290 K/mm3 (150-400); RDW Standard Deviation 46.9 fL (35.1-46.3); Red Blood Cell Count 4.69 M/mm3 (3.80-5.20); White Blood Cell Count 11.71 K/mm3 (4.00-11.30)
[2023-06-03 16:38] LABS: Albumin, Blood 3.5 g/dL (3.4-5.0); Albumin/Globulin Ratio 1.2 (0.8-1.8); Bilirubin, Total 0.5 mg/dL (0.1-1.0); Bun/Creatinine Ratio 15.4 (12.0-20.0); Calcium, Blood 8.7 mg/dL (8.5-10.1); Creatinine, Blood 0.78 mg/dL (0.40-1.00); Globulin, Blood 2.8 g/dL (2.2-4.0); Potassium, Blood 3.8 mmol/L (3.5-5.5); Total Protein, Blood 6.3 g/dL (6.4-8.2)
[2023-06-03 17:55] LABS: Influenza A, PCR NEGATIVE (NEGATIVE); Influenza B, PCR NEGATIVE (NEGATIVE); Resp Syncytial Virus, PCR NEGATIVE (NEGATIVE); SARS-Cov-2 (COVID-19) PCR, MMC NEGATIVE (NEGATIVE)
[2023-06-03] MEDS ORDERED: Prednisone20 MG PO (18:13)
[2023-06-03 18:15] VITALS: BP 121/75
== END 2023-06-03 18:44 | disposition home or self-care (01) ==
LOC: ER 15:55
PROVIDERS: Emergency Medicine
DX: R07.9 Chest pain, unspecified (principal); J44.1 Chronic obstructive pulmonary disease with (acute) exacerbation; I50.9 Heart failure, unspecified; Z20.822 Contact with and (suspected) exposure to COVID-19; Z87.19 Personal history of other diseases of the digestive system; Z88.8 Allergy status to other drugs, medicaments and biological substances; Z88.5 Allergy status to narcotic agent; Z88.0 Allergy status to penicillin; Z88.6 Allergy status to analgesic agent; Z88.1 Allergy status to other antibiotic agents; Z79.899 Other long term (current) drug therapy; Z87.891 Personal history of nicotine dependence
CPT/HCPCS: 0241U; 71046; 80053; 83880; 84484; 85025; 93005; 93010; 94640; 94664; 99285-25; J7512

== ENCOUNTER 2024-01-26 13:48 | Emergency (ER) | payer MEDICARE, OTHER ==
[~2024-01-26] VITALS: Ht 165.1 cm; Wt 68.0 kg
[2024-01-26 14:29] LABS: BASOPHILS ABSOLUTE AUTO 0.03 K/mm3 (0.00-0.23); BASOPHILS PERCENT AUTO 0 % (0-2); EOSINOPHILS PERCENT AUTO 1 % (0-6); Hematocrit 40.8 % (33.0-51.0); Hemoglobin 13.2 g/dL (11.5-16.0); IMMATURE GRAN PERCENT AUTO 1 % (0-1); LYMPHOCYTES ABSOLUTE AUTO 2.51 K/mm3 (0.84-5.20); LYMPHOCYTES PERCENT AUTO 15 % (21-46); MONOCYTES PERCENT AUTO 6 % (4-13); Mean Corpuscular HGB 29.3 pg (26.0-34.0); Mean Corpuscular HGB Conc 32.4 g/dL (31.5-36.5); Mean Corpuscular Volume 91 fL (80-100); Mean Platelet Volume 10.6 fL (9.1-12.4); NEUTROPHILS ABSOLUTE AUTO 12.78 K/mm3 (1.96-9.15); NEUTROPHILS PERCENT AUTO 78 % (41-73); Platelet Count 304 K/mm3 (150-400); RDW Coefficient Variation 14.7 % (11.7-14.2); RDW Standard Deviation 48.9 fL (35.1-46.3); Red Blood Cell Count 4.51 M/mm3 (3.80-5.20); White Blood Cell Count 16.42 K/mm3 (4.00-11.30)
[2024-01-26 14:44] LABS: Albumin, Blood 3.2 g/dL (3.4-5.0); Bilirubin, Total 0.5 mg/dL (0.1-1.0); Bun/Creatinine Ratio 30.4 (12.0-20.0); Creatinine, Blood 0.63 mg/dL (0.40-1.00); Globulin, Blood 3.1 g/dL (2.2-4.0); Potassium, Blood 4.4 mmol/L (3.5-5.5); Total Protein, Blood 6.3 g/dL (6.4-8.2)
[2024-01-26] MEDS ORDERED: Ipratropium/Albuterol SulF 2.5-0.5MG/3 ML Amp INH ONE (14:50)
[2024-01-26] MEDS ORDERED: MethylPREDNISolone Sod Succ 125 MG Vial IV ONE (14:55)
[2024-01-26] MEDS ORDERED: NS 1,000 ML IV SCH (16:25)
[2024-01-26 17:34] VITALS: BP 118/70
[2024-01-26 17:42] LABS: Source, Urine Straight Cath
[2024-01-26 17:44] LABS: Appearance, Urine Clear (Clear); Bilirubin, Urine Neg (Neg); Blood, Urine Neg (Neg); Color, Urine Yellow (P-Yellow); Glucose Qualitative, Urine Neg (Neg); Ketones, Urine Neg (Neg); Leukocyte Esterase, Urine Neg (Neg); Nitrite, Urine Neg (Neg); Protein, Urine Neg (Neg); Urobilinogen, Urine NORM (Normal)
[2024-01-26] MEDS ORDERED: PRED20 PO (18:22)
== END 2024-01-26 18:44 | disposition home or self-care (01) ==
LOC: ER 13:48
PROVIDERS: Emergency Medicine; Student in an Organized Health Care Education/Training Program
DX: K52.9 Noninfective gastroenteritis and colitis, unspecified (principal); J44.1 Chronic obstructive pulmonary disease with (acute) exacerbation; J44.89 Other specified chronic obstructive pulmonary disease; F31.9 Bipolar disorder, unspecified; G47.30 Sleep apnea, unspecified; G62.9 Polyneuropathy, unspecified; I50.9 Heart failure, unspecified; Z79.52 Long term (current) use of systemic steroids; Z79.899 Other long term (current) drug therapy; Z88.0 Allergy status to penicillin; Z88.5 Allergy status to narcotic agent; Z88.8 Allergy status to other drugs, medicaments and biological substances
CPT/HCPCS: 51701; 71046; 74177; 80053; 81003; 83880; 84484; 85025; 93005; 93010; 94640; 94664; 96361; 96374; 99285-25; J2930; J7030; Q9967

== ENCOUNTER 2024-10-19 16:28 | Emergency (ER) | payer MEDICARE, OTHER ==
[~2024-10-19] VITALS: Ht 172.7 cm; Wt 36.3 kg
[2024-10-19 17:10] LABS: BASOPHILS ABSOLUTE AUTO 0.04 K/mm3 (0.00-0.23); BASOPHILS PERCENT AUTO 0 % (0-2); EOSINOPHILS ABSOLUTE AUTO 0.12 K/mm3 (0.00-0.68); EOSINOPHILS PERCENT AUTO 1 % (0-6); Hematocrit 40.7 % (33.0-51.0); Hemoglobin 13.5 g/dL (11.5-16.0); IMMATURE GRAN ABSOLUTE AUTO 0.03 K/mm3 (0.00-0.10); IMMATURE GRAN PERCENT AUTO 0 % (0-1); LYMPHOCYTES PERCENT AUTO 16 % (21-46); MONOCYTES ABSOLUTE AUTO 0.89 K/mm3 (0.16-1.47); MONOCYTES PERCENT AUTO 8 % (4-13); Mean Corpuscular HGB 29.7 pg (26.0-34.0); Mean Corpuscular HGB Conc 33.2 g/dL (31.5-36.5); Mean Corpuscular Volume 90 fL (80-100); Mean Platelet Volume 10.9 fL (9.1-12.4); NEUTROPHILS ABSOLUTE AUTO 8.69 K/mm3 (1.96-9.15); NEUTROPHILS PERCENT AUTO 75 % (41-73); Platelet Count 218 K/mm3 (150-400); RDW Coefficient Variation 14.2 % (11.7-14.2); RDW Standard Deviation 46.7 fL (35.1-46.3); Red Blood Cell Count 4.54 M/mm3 (3.80-5.20); White Blood Cell Count 11.67 K/mm3 (4.00-11.30)
[2024-10-19] MEDS ORDERED: Ipratropium/Albuterol SulF 2.5-0.5MG/3 ML Amp INH ONE (17:20)
[2024-10-19] MEDS ORDERED: NS 1,000 ML IV SCH (17:20)
[2024-10-19] MEDS ORDERED: MethylPREDNISolone Sod Succ 125 MG Vial IV ONE (17:20)
[2024-10-19 17:35] LABS: Albumin, Blood 2.8 g/dL (3.4-5.0); Bilirubin, Total 0.7 mg/dL (0.1-1.0); Bun/Creatinine Ratio 31.6 (12.0-20.0); Calcium, Blood 8.4 mg/dL (8.5-10.1); Creatinine, Blood 0.63 mg/dL (0.40-1.00); Globulin, Blood 2.9 g/dL (2.2-4.0); Potassium, Blood 3.6 mmol/L (3.5-5.5); Total Protein, Blood 5.7 g/dL (6.4-8.2)
[2024-10-19 18:12] LABS: Base Excess Venous 4.6 mmol/L; Bicarbonate Venous 28.2 mmol/L (24.0-30.0); PCO2 Venous 40.7 mmHg (38-42); pH Blood Venous 7.46 (7.34-7.37)
[2024-10-19 18:35] LABS: Influenza A, PCR NEGATIVE (NEGATIVE); Influenza B, PCR NEGATIVE (NEGATIVE); Resp Syncytial Virus, PCR NEGATIVE (NEGATIVE); SARS-Cov-2 (COVID-19) PCR, MMC NEGATIVE (NEGATIVE)
[2024-10-19 18:58] VITALS: BP 94/57
[2024-10-19] MEDS ORDERED: PRED20 PO (21:22)
[2024-10-19] MEDS ORDERED: AZIT250 PO (21:22)
[2024-10-19] MEDS ORDERED: Ondansetron 8 MG SoluTab SL ONE (21:35)
== END 2024-10-19 21:40 | disposition home or self-care (01) ==
LOC: ER 16:28
PROVIDERS: Emergency Medicine; Student in an Organized Health Care Education/Training Program
DX: J44.1 Chronic obstructive pulmonary disease with (acute) exacerbation (principal); G47.30 Sleep apnea, unspecified; Z87.891 Personal history of nicotine dependence; Z79.899 Other long term (current) drug therapy; Z88.5 Allergy status to narcotic agent; Z88.0 Allergy status to penicillin; Z88.8 Allergy status to other drugs, medicaments and biological substances
CPT/HCPCS: 0241U; 49180; 71046; 71260; 80053; 82803; 83880; 84484; 85025; 85379; 93005; 93010; 94640; 94664; 96374-59; 99285-25; A9270; J2919; J7030; Q9967

== ENCOUNTER 2025-04-17 09:07 | Emergency (ER) | payer MEDICARE, OTHER ==
[~2025-04-17] VITALS: Ht 167.6 cm; Wt 45.4 kg
[2025-04-17 09:36] LABS: BASOPHILS ABSOLUTE AUTO 0.05 K/mm3 (0.00-0.23); BASOPHILS PERCENT AUTO 1 % (0-2); EOSINOPHILS ABSOLUTE AUTO 0.46 K/mm3 (0.00-0.68); EOSINOPHILS PERCENT AUTO 6 % (0-6); Hematocrit 44.1 % (33.0-51.0); Hemoglobin 14.0 g/dL (11.5-16.0); IMMATURE GRAN ABSOLUTE AUTO 0.02 K/mm3 (0.00-0.10); IMMATURE GRAN PERCENT AUTO 0 % (0-1); LYMPHOCYTES ABSOLUTE AUTO 3.09 K/mm3 (0.84-5.20); LYMPHOCYTES PERCENT AUTO 39 % (21-46); MONOCYTES ABSOLUTE AUTO 0.81 K/mm3 (0.16-1.47); MONOCYTES PERCENT AUTO 10 % (4-13); Mean Corpuscular HGB Conc 31.7 g/dL (31.5-36.5); Mean Corpuscular Volume 92 fL (80-100); NEUTROPHILS ABSOLUTE AUTO 3.55 K/mm3 (1.96-9.15); NEUTROPHILS PERCENT AUTO 44 % (41-73); NRBC ABSOLUTE 0.00 K/mm3 (0.00-0.02); NRBC Auto 0.0 /100 WBC (0.0-0.2); Platelet Count 240 K/mm3 (150-400); RDW Coefficient Variation 13.8 % (11.7-14.2); RDW Standard Deviation 46.9 fL (35.1-46.3)
[2025-04-17 09:39] LABS: pH Blood Venous 7.39 (7.34-7.37)
[2025-04-17] MEDS ORDERED: PRAM.125 PO (09:57)
[2025-04-17] MEDS ORDERED: BREZTRI AEROS10.7 GM INH (09:57)
[2025-04-17] MEDS ORDERED: MECL25 PO (09:58)
[2025-04-17] MEDS ORDERED: AMIT25 PO (09:58)
[2025-04-17 09:59] LABS: Alanine Aminotransfer (ALT/SGP 15.0 U/L (12-78); Albumin, Blood 3.1 g/dL (3.4-5.0); Albumin/Globulin Ratio 1.0 (0.8-1.8); Anion Gap 4.0 mmol/L (3-11); Aspartate Aminotrans (AST/SGOT 11.0 U/L (12-37); Bilirubin, Total 0.5 mg/dL (0.1-1.0); Blood Urea Nitrogen 10.0 mg/dL (8-24); CO2, Blood 34.0 mmol/L (21-32); Calcium, Blood 8.8 mg/dL (8.5-10.1); Chloride, Blood 105.0 mmol/L (98-108); Creatinine, Blood 0.57 mg/dL (0.40-1.00); Globulin, Blood 3.0 g/dL (2.2-4.0); Glucose, Blood 111.0 mg/dL (70-99); Potassium, Blood 4.5 mmol/L (3.5-5.5); Sodium, Blood 138.0 mmol/L (136-145); Total Protein, Blood 6.1 g/dL (6.4-8.2)
[2025-04-17 11:52] LABS: Source, Urine Straight Cath
[2025-04-17 11:59] LABS: Bilirubin, Urine Neg (Neg); Color, Urine Yellow (P-Yellow); Glucose Qualitative, Urine Neg (Neg); Ketones, Urine Neg (Neg); Leukocyte Esterase, Urine Neg (Neg); Protein, Urine Neg (Neg); Specific Gravity, Urine 1.025 (1.003-1.022); Urobilinogen, Urine NORM (Normal)
[2025-04-17 12:55] VITALS: BP 127/65
[2025-04-17] MEDS ORDERED: Zithromax Tri-500 MG PO (13:30)
[2025-04-17] MEDS ORDERED: PRED20 PO (16:22)
== END 2025-04-17 13:50 | disposition home or self-care (01) ==
LOC: ER 09:07
PROVIDERS: Student in an Organized Health Care Education/Training Program
DX: J44.1 Chronic obstructive pulmonary disease with (acute) exacerbation (principal); Z88.5 Allergy status to narcotic agent; Z88.0 Allergy status to penicillin; Z88.8 Allergy status to other drugs, medicaments and biological substances; Z79.899 Other long term (current) drug therapy; Z79.2 Long term (current) use of antibiotics; G47.33 Obstructive sleep apnea (adult) (pediatric); I50.9 Heart failure, unspecified; Z90.711 Acquired absence of uterus with remaining cervical stump; Z90.49 Acquired absence of other specified parts of digestive tract; Z87.891 Personal history of nicotine dependence; Z96.651 Presence of right artificial knee joint
CPT/HCPCS: 71046; 80053; 81003; 82803; 83880; 84484; 85025; 93005; 93010; 99285-25

== ENCOUNTER 2025-06-09 06:18 | Emergency (ER) | payer MEDICARE, OTHER ==
[~2025-06-09] VITALS: Ht 167.6 cm; Wt 39.0 kg
[~2025-06-09 06:18] MED LIST changes: +AMIT25 PO; +BREZTRI AEROS10.7 GM INH; +Zithromax Tri-500 MG PO
[2025-06-09] MEDS ORDERED: Ipratropium/Albuterol SulF 2.5-0.5MG/3 ML Amp INH PRN (06:55)
[2025-06-09 07:27] LABS: Alanine Aminotransfer (ALT/SGP 22.0 U/L (12-78); Albumin, Blood 3.6 g/dL (3.4-5.0); Albumin/Globulin Ratio 1.2 (0.8-1.8); Anion Gap 6.0 mmol/L (3-11); Aspartate Aminotrans (AST/SGOT 22.0 U/L (12-37); Bilirubin, Total 0.4 mg/dL (0.1-1.0); Blood Urea Nitrogen 12.0 mg/dL (8-24); CO2, Blood 32.0 mmol/L (21-32); Calcium, Blood 8.7 mg/dL (8.5-10.1); Chloride, Blood 103.0 mmol/L (98-108); Creatinine, Blood 0.5 mg/dL (0.40-1.00); Globulin, Blood 3.1 g/dL (2.2-4.0); Glucose, Blood 111.0 mg/dL (70-99); Potassium, Blood 4.9 mmol/L (3.5-5.5); Sodium, Blood 136.0 mmol/L (136-145); Total Protein, Blood 6.7 g/dL (6.4-8.2)
[2025-06-09 07:29] LABS: BASOPHILS ABSOLUTE AUTO 0.04 K/mm3 (0.00-0.23); BASOPHILS PERCENT AUTO 0 % (0-2); EOSINOPHILS ABSOLUTE AUTO 0.08 K/mm3 (0.00-0.68); EOSINOPHILS PERCENT AUTO 1 % (0-6); Hematocrit 43.0 % (33.0-51.0); Hemoglobin 13.5 g/dL (11.5-16.0); IMMATURE GRAN ABSOLUTE AUTO 0.03 K/mm3 (0.00-0.10); IMMATURE GRAN PERCENT AUTO 0 % (0-1); LYMPHOCYTES ABSOLUTE AUTO 2.32 K/mm3 (0.84-5.20); LYMPHOCYTES PERCENT AUTO 22 % (21-46); MONOCYTES ABSOLUTE AUTO 0.85 K/mm3 (0.16-1.47); MONOCYTES PERCENT AUTO 8 % (4-13); Mean Corpuscular HGB Conc 31.4 g/dL (31.5-36.5); Mean Corpuscular Volume 90 fL (80-100); NEUTROPHILS ABSOLUTE AUTO 7.48 K/mm3 (1.96-9.15); NEUTROPHILS PERCENT AUTO 69 % (41-73); NRBC ABSOLUTE 0.00 K/mm3 (0.00-0.02); NRBC Auto 0.0 /100 WBC (0.0-0.2); RDW Coefficient Variation 14.3 % (11.7-14.2); RDW Standard Deviation 47.8 fL (35.1-46.3)
[2025-06-09 09:12] LABS: Source, Urine Straight Cath
[2025-06-09 09:19] LABS: Bilirubin, Urine Neg (Neg); Color, Urine Yellow (P-Yellow); Glucose Qualitative, Urine Neg (Neg); Ketones, Urine Neg (Neg); Leukocyte Esterase, Urine Neg (Neg); Protein, Urine Neg (Neg); Specific Gravity, Urine 1.020 (1.003-1.022); Urobilinogen, Urine NORM (Normal)
[2025-06-09 10:30] VITALS: BP 113/79
[2025-06-09] MEDS ORDERED: ALBU90OI INH (10:45)
[2025-06-09] MEDS ORDERED: ALBU2.5V5 INH (10:45)
== END 2025-06-09 11:10 | disposition home or self-care (01) ==
LOC: ER 06:18
PROVIDERS: Emergency Medicine
DX: J96.10 Chronic respiratory failure, unspecified whether with hypoxia or hypercapnia (principal); J44.89 Other specified chronic obstructive pulmonary disease; G47.30 Sleep apnea, unspecified; Z88.5 Allergy status to narcotic agent; Z88.0 Allergy status to penicillin; Z88.8 Allergy status to other drugs, medicaments and biological substances; Z79.52 Long term (current) use of systemic steroids; Z79.51 Long term (current) use of inhaled steroids; Z79.899 Other long term (current) drug therapy; Z87.891 Personal history of nicotine dependence
CPT/HCPCS: 51701; 71046; 80053; 81003; 84484; 85025; 93005; 93010; 99285-25

== ENCOUNTER → 2025-08-12 | Outpatient (CLI) | payer MEDICARE, OTHER | END | disposition home or self-care (01) | LOC: LAB 11:00 → LAB SHORT 11:00 | DX: L03.116 Cellulitis of left lower limb (principal) | CPT/HCPCS: 87070; 87077; 87185; 87186; 87205 ==